=== PATIENT | female | born 1965 | race Caucasian/White ===

== ENCOUNTER 2017-08-18 13:16 | Emergency (ER) | payer MEDICARE, MEDICAID ==
[2017-08-18] MEDS ORDERED: hydrOXYzine 25 MG TAB ONE (14:21)
[2017-08-18] MEDS ORDERED: Acetaminophen 500 MG TAB ONE (14:21)
== END 2017-08-18 15:27 | disposition home or self-care (01) ==
LOC: ERS 13:16
DX: F41.9 Anxiety disorder, unspecified (principal); E66.9 Obesity, unspecified; E78.5 Hyperlipidemia, unspecified; I10 Essential (primary) hypertension
CPT/HCPCS: 99283

== ENCOUNTER 2018-03-17 18:28 | Emergency (ER) | payer MEDICARE, OTHER | END 2018-03-17 19:25 | disposition home or self-care (01) | LOC: ERS 18:28 | DX: F41.9 Anxiety disorder, unspecified (principal); I10 Essential (primary) hypertension; E66.9 Obesity, unspecified; E78.5 Hyperlipidemia, unspecified; Z79.899 Other long term (current) drug therapy | CPT/HCPCS: 93005 ==

== ENCOUNTER 2018-08-05 16:28 | Emergency (ER) | payer MEDICARE, OTHER ==
[2018-08-05] MEDS ORDERED: Lorazepam 1 MG TAB ONE (17:31)
== END 2018-08-05 18:30 | disposition home or self-care (01) ==
LOC: ERS 16:28
DX: F41.9 Anxiety disorder, unspecified (principal); E78.5 Hyperlipidemia, unspecified; I10 Essential (primary) hypertension; Z79.899 Other long term (current) drug therapy
CPT/HCPCS: 93005

== ENCOUNTER 2018-12-24 01:05 | Emergency (ER) | payer MEDICARE, OTHER | END 2018-12-24 02:33 | disposition home or self-care (01) | LOC: ERS 01:05 | DX: F41.9 Anxiety disorder, unspecified (principal); E78.5 Hyperlipidemia, unspecified; I10 Essential (primary) hypertension; Z79.899 Other long term (current) drug therapy | CPT/HCPCS: 93005 ==

== ENCOUNTER 2019-07-03 16:25 | Emergency (ER) | payer MEDICARE, OTHER ==
[2019-07-03] MEDS ORDERED: Lorazepam 1 MG TAB ONE (17:10)
[2019-07-03] MEDS ORDERED: hydrOXYzine Pamoate 25 mg Capsule ONE (17:48)
== END 2019-07-03 18:00 | disposition home or self-care (01) ==
LOC: ERS 16:25
DX: F41.9 Anxiety disorder, unspecified (principal); E78.5 Hyperlipidemia, unspecified; E78.00 Pure hypercholesterolemia, unspecified; I10 Essential (primary) hypertension; Z79.899 Other long term (current) drug therapy
CPT/HCPCS: 99283; Q0177

== ENCOUNTER 2019-10-03 12:36 | Emergency (ER) | payer MEDICARE, OTHER | END 2019-10-03 15:00 | disposition home or self-care (01) | LOC: ERS 12:36 | DX: J32.9 Chronic sinusitis, unspecified (principal); E78.5 Hyperlipidemia, unspecified; E78.00 Pure hypercholesterolemia, unspecified; I10 Essential (primary) hypertension; F41.9 Anxiety disorder, unspecified | CPT/HCPCS: 99284 ==

== ENCOUNTER 2019-10-24 17:56 | Emergency (ER) | payer MEDICARE, OTHER ==
[2019-10-24] MEDS ORDERED: hydrOXYzine 25 MG TAB ONE ×2 (19:11→19:15)
== END 2019-10-24 19:42 | disposition home or self-care (01) ==
LOC: ERS 17:56
DX: F41.9 Anxiety disorder, unspecified (principal); E78.5 Hyperlipidemia, unspecified; E78.00 Pure hypercholesterolemia, unspecified; I10 Essential (primary) hypertension
CPT/HCPCS: 99283

== ENCOUNTER 2019-11-22 13:35 | Emergency (ER) | payer MEDICARE, OTHER ==
[2019-11-22] MEDS ORDERED: Ketorolac Tromethamine 30 MG/ML VIAL ONE (15:50)
[2019-11-22] MEDS ORDERED: Lorazepam 2 MG/ML VIAL ONE (15:50)
[2019-11-22 16:05] LABS: #Eosinphils 0.1 thou/uL (0.0-0.7); #Lymphocytes 1.1 thou/uL (1.20-3.40); #Monocytes 0.5 thou/uL (0.11-0.59); #Neutrophils 7.2 thou/uL (1.40-6.50); %Basophils 0.2 % (0.0-1.0); %Eosinophils 0.6 % (0.0-10.0); %Lymphocytes 12.2 % (21.0-51.0); %Monocytes 5.6 % (0.0-10.0); %Neutrophils 81.4 % (42.0-75.0); Mean Corpuscular HGB CONC 34.1 g/dL (32.0-36.0); Mean Corpuscular Hemoglobin 28.7 pg (27.0-31.0); Mean Corpuscular Volume 84.1 fL (78.0-98.0); Mean Platelet Volume 9.7 fL (7.4-10.4); Platelet Count 222 thou/uL (130-400); RBC Distribution Width 13.1 % (11.5-14.5); Red Blood Cell (RBC) Count 4.52 mill/uL (4.20-5.40); White Blood Cell (WBC) Count 8.8 thou/uL (4.8-10.8)
[2019-11-22 16:18] LABS: Bilirubin Negative (Negative); Blood, Urine Negative (Negative); Clarity Clear (Clear); Glucose, Urine (Dipstick) Normal (Negative); Leukocyte Negative Leu/uL (Negative); Nitrite Negative (Negative); Protein, Urine (Dipstick) Negative (Neg-Trace); Urobilinogen Normal mg/dL (Less than 2)
[2019-11-22 16:27] LABS: Amphetamine Not Detected (NotDetected); Barbiturates Screen Not Detected (NotDetected); Benzodiazepine Screen Detected (NotDetected); Cocaine Metabolite Screen Not Detected (NotDetected); Medtox Control Line Valid? VALID (VALID); Medtox Reader # READER 4; Methadone Not Detected (NotDetected); Methamphetamine Not Detected (NotDetected); Opiate Screen Not Detected (NotDetected); Oxycodone Screen Not Detected (NotDetected); Phencyclidine (PCP) Not Detected (NotDetected); THC/Cannabinoid Screen Not Detected (NotDetected); Tricyclic Screen Not Detected (NotDetected)
[2019-11-22 16:27] LABS: ALT (SGPT) 19 U/L (8-55); AST (SGOT) 17 U/L (5-34); Albumin 4.2 g/dL (3.5-5.0); Alkaline Phosphatase 78 U/L (40-110); Anion Gap 12 mmol/L (10-20); BUN (Urea Nitrogen) 11 mg/dL (9.8-20.1); Bilirubin, Total 0.4 mg/dL (0.2-1.2); Calc. Creatinine Clearance 0 mL/min (70-130); Calcium 9.7 mg/dL (7.8-10.44); Carbon Dioxide 25 mmol/L (22-29); Chloride 106 mmol/L (98-107); Estimated GFR-MDRD 76; Globulin 3.1 g/dL (2.4-3.5); Glucose 119 mg/dL (70-105); Lipase 43 U/L (8-78); Potassium 3.9 mmol/L (3.5-5.1); Protein, Total 7.3 g/dL (6.0-8.3); Sodium 139 mmol/L (136-145)
== END 2019-11-22 18:30 | disposition home or self-care (01) ==
LOC: ERS 13:35
DX: F43.22 Adjustment disorder with anxiety (principal); J98.8 Other specified respiratory disorders; R42 Dizziness and giddiness
CPT/HCPCS: 36415; 80053; 80306; 81003; 83690; 85025; 96361; 96374; 96375; J1885; J2060

== ENCOUNTER 2019-12-22 14:51 | Emergency (ER) | payer MEDICARE, OTHER | END 2019-12-22 16:00 | disposition home or self-care (01) | LOC: ERS 14:51 | DX: F41.9 Anxiety disorder, unspecified (principal); I10 Essential (primary) hypertension; E11.9 Type 2 diabetes mellitus without complications; E78.5 Hyperlipidemia, unspecified | CPT/HCPCS: 99284 ==

== ENCOUNTER 2020-01-09 12:55 | Emergency (ER) | payer MEDICARE, OTHER | END 2020-01-09 15:03 | disposition home or self-care (01) | LOC: ERS 12:55 | DX: F41.9 Anxiety disorder, unspecified (principal); I10 Essential (primary) hypertension; E78.5 Hyperlipidemia, unspecified; E11.9 Type 2 diabetes mellitus without complications; Z79.899 Other long term (current) drug therapy | CPT/HCPCS: 99283 ==

== ENCOUNTER 2020-03-05 13:13 | Emergency (ER) | payer MEDICARE, OTHER | END 2020-03-05 15:39 | disposition home or self-care (01) | LOC: ERS 13:13 | DX: F41.9 Anxiety disorder, unspecified (principal); I10 Essential (primary) hypertension; E78.5 Hyperlipidemia, unspecified; E11.9 Type 2 diabetes mellitus without complications; Z79.899 Other long term (current) drug therapy | CPT/HCPCS: 36416; 93005 ==

== ENCOUNTER 2020-04-30 13:18 | Emergency (ER) | payer MEDICARE, OTHER ==
[2020-04-30 14:35] LABS: #Eosinphils 0.1 thou/uL (0.0-0.7); #Lymphocytes 1.2 thou/uL (1.20-3.40); #Monocytes 0.5 thou/uL (0.11-0.59); #Neutrophils 4.7 thou/uL (1.40-6.50); %Basophils 0.6 % (0.0-1.0); %Eosinophils 1.4 % (0.0-10.0); %Lymphocytes 18.6 % (21.0-51.0); %Monocytes 7.6 % (0.0-10.0); %Neutrophils 71.8 % (42.0-75.0); Hemoglobin 12.6 g/dL (12.0-16.0); Mean Corpuscular HGB CONC 33.9 g/dL (32.0-36.0); Mean Corpuscular Hemoglobin 29.5 pg (27.0-31.0); Mean Platelet Volume 9.2 fL (7.4-10.4); Platelet Count 229 thou/uL (130-400); RBC Distribution Width 12.3 % (11.5-14.5); Red Blood Cell (RBC) Count 4.28 mill/uL (4.20-5.40); White Blood Cell (WBC) Count 6.6 thou/uL (4.8-10.8)
[2020-04-30 14:58] LABS: ALT (SGPT) 20 U/L (8-55); AST (SGOT) 17 U/L (5-34); Albumin 4.4 g/dL (3.5-5.0); Alkaline Phosphatase 85 U/L (40-110); Anion Gap 15 mmol/L (10-20); BUN (Urea Nitrogen) 12 mg/dL (9.8-20.1); Bilirubin, Total 0.5 mg/dL (0.2-1.2); CK (CPK) 112 U/L (29-168); Calc. Creatinine Clearance 0 mL/min (70-130); Calcium 9.5 mg/dL (7.8-10.44); Carbon Dioxide 23 mmol/L (22-29); Chloride 106 mmol/L (98-107); Estimated GFR-MDRD 77; Globulin 3.3 g/dL (2.4-3.5); Glucose 150 mg/dL (70-105); Lipase 46 U/L (8-78); Protein, Total 7.7 g/dL (6.0-8.3); Sodium 140 mmol/L (136-145)
--- NOTE | 2020-04-30 15:53 | RAD ---
EXAM: CHEST ONE VIEW: 04/30/20 HISTORY: Chest pain, chest tightness, feeling overwhelmed. FINDINGS: Heart size is within normal limits. The lungs are clear. No confluent pneumonia, overt edema, or pleu ral effusion. IMPRESSION: No significant acute intrathoracic disease. POS: [facility]
[2020-04-30 17:47] LABS: Troponin I 0.013 ng/mL (< 0.028)
== END 2020-04-30 18:15 | disposition home or self-care (01) ==
LOC: ERS 13:18
DX: R07.9 Chest pain, unspecified (principal); I10 Essential (primary) hypertension; E11.9 Type 2 diabetes mellitus without complications; E78.5 Hyperlipidemia, unspecified; F41.9 Anxiety disorder, unspecified; Z79.899 Other long term (current) drug therapy
CPT/HCPCS: 36415; 71045; 80053; 82550; 83690; 84484; 85025; 93005

== ENCOUNTER 2020-05-07 12:58 | Emergency (ER) | payer MEDICARE, OTHER ==
[2020-05-07 15:02] LABS: #Eosinphils 0.1 thou/uL (0.0-0.7); #Monocytes 0.5 thou/uL (0.11-0.59); #Neutrophils 5.6 thou/uL (1.40-6.50); %Basophils 0.4 % (0.0-1.0); %Eosinophils 1.9 % (0.0-10.0); %Monocytes 6.5 % (0.0-10.0); %Neutrophils 77.2 % (42.0-75.0); Hemoglobin 12.4 g/dL (12.0-16.0); Mean Corpuscular HGB CONC 32.8 g/dL (32.0-36.0); Mean Corpuscular Hemoglobin 28.5 pg (27.0-31.0); Mean Corpuscular Volume 86.9 fL (78.0-98.0); Mean Platelet Volume 9.6 fL (7.4-10.4); Platelet Count 250 thou/uL (130-400); RBC Distribution Width 12.6 % (11.5-14.5); Red Blood Cell (RBC) Count 4.36 mill/uL (4.20-5.40); White Blood Cell (WBC) Count 7.2 thou/uL (4.8-10.8)
[2020-05-07 15:27] LABS: ALT (SGPT) 19 U/L (8-55); AST (SGOT) 14 U/L (5-34); Albumin 4.2 g/dL (3.5-5.0); Alkaline Phosphatase 77 U/L (40-110); Anion Gap 12 mmol/L (10-20); BUN (Urea Nitrogen) 12 mg/dL (9.8-20.1); Bilirubin, Total 0.4 mg/dL (0.2-1.2); Calc. Creatinine Clearance 0 mL/min (70-130); Calcium 9.6 mg/dL (7.8-10.44); Carbon Dioxide 24 mmol/L (22-29); Chloride 107 mmol/L (98-107); Estimated GFR-MDRD 81; Globulin 3.1 g/dL (2.4-3.5); Glucose 134 mg/dL (70-105); Potassium 3.8 mmol/L (3.5-5.1); Protein, Total 7.3 g/dL (6.0-8.3); Sodium 139 mmol/L (136-145)
[2020-05-07] MEDS ORDERED: Lorazepam 1 MG TAB ONE (15:47)
--- NOTE | 2020-05-07 15:51 | RAD ---
PORTABLE CHEST: 05/07/20 HISTORY: Chest pain. COMPARISON: 04/30/20. FINDINGS/IMPRESSION: Mild cardiomegaly with mild vascular engorgement. Hazy opacities in the lower lungs is similar to the prior exam. This could represent edema or infiltrate. No significant interval change is apparent fro m 04/30/20. POS: [facility]
== END 2020-05-07 16:25 | disposition home or self-care (01) ==
LOC: ERS 12:58
DX: F41.1 Generalized anxiety disorder (principal); I10 Essential (primary) hypertension; E11.9 Type 2 diabetes mellitus without complications; E78.5 Hyperlipidemia, unspecified; F41.9 Anxiety disorder, unspecified; Z79.899 Other long term (current) drug therapy
CPT/HCPCS: 36415; 71045; 80053; 84484; 85025; 93005

== ENCOUNTER 2020-08-06 23:55 | Emergency (ER) | payer MEDICARE, OTHER ==
[2020-08-07] MEDS ORDERED: Ketorolac Tromethamine 30 MG/ML VIAL ONE (01:35)
== END 2020-08-07 01:55 | disposition home or self-care (01) ==
LOC: ERS 23:55
DX: M25.562 Pain in left knee (principal); M25.561 Pain in right knee; M54.5 Low back pain; E11.9 Type 2 diabetes mellitus without complications; E78.5 Hyperlipidemia, unspecified; I10 Essential (primary) hypertension; F41.9 Anxiety disorder, unspecified; Z79.899 Other long term (current) drug therapy
CPT/HCPCS: 96372; 99283; J1885

== ENCOUNTER 2020-08-16 02:49 | Emergency (ER) | payer MEDICARE, OTHER ==
[2020-08-16 04:09] LABS: #Lymphocytes 0.5 thou/uL (1.20-3.40); #Monocytes 0.2 thou/uL (0.11-0.59); #Neutrophils 2.4 thou/uL (1.40-6.50); %Basophils 0.3 % (0.0-1.0); %Eosinophils 1.1 % (0.0-10.0); %Lymphocytes 16.4 % (21.0-51.0); %Monocytes 6.4 % (0.0-10.0); %Neutrophils 75.8 % (42.0-75.0); Hemoglobin 10.5 g/dL (12.0-16.0); Mean Corpuscular HGB CONC 33.9 g/dL (32.0-36.0); Mean Corpuscular Hemoglobin 27.7 pg (27.0-31.0); Mean Corpuscular Volume 81.9 fL (78.0-98.0); Mean Platelet Volume 8.9 fL (7.4-10.4); Platelet Count 201 thou/uL (130-400); RBC Distribution Width 14.2 % (11.5-14.5); Red Blood Cell (RBC) Count 3.77 mill/uL (4.20-5.40); White Blood Cell (WBC) Count 3.2 thou/uL (4.8-10.8)
[2020-08-16 04:29] LABS: ALT (SGPT) 13 U/L (8-55); AST (SGOT) 20 U/L (5-34); Albumin 3.4 g/dL (3.5-5.0); Alkaline Phosphatase 70 U/L (40-110); Anion Gap 15 mmol/L (10-20); BUN (Urea Nitrogen) 9 mg/dL (9.8-20.1); Bilirubin, Total 0.8 mg/dL (0.2-1.2); Calc. Creatinine Clearance 0 mL/min (70-130); Calcium 8.4 mg/dL (7.8-10.44); Carbon Dioxide 23 mmol/L (22-29); Chloride 104 mmol/L (98-107); Estimated GFR-MDRD 76; Glucose 112 mg/dL (70-105); Potassium 3.5 mmol/L (3.5-5.1); Protein, Total 6.4 g/dL (6.0-8.3); Sodium 138 mmol/L (136-145)
--- NOTE | 2020-08-16 11:15 | RAD ---
PORTABLE CHEST: HISTORY: Cough. COMPARISON: 05/07/2020 study. FINDINGS: Heart size is within normal limits. Increased parenchymal density in both lung hein could be on th e basis of edema, but multifocal infiltrative and COVID exposure could be a consideration. IMPRESSION: Borderline heart size, mild pulmonary vascular engorgement, increased interstitial markings. This co uld indicate some element of edema. However, the parenchymal lung hein are somewhat patchy in dist ribution and a multifocal pneumonia such as COVID should be considered. POS: OFF
== END 2020-08-16 05:42 | disposition home or self-care (01) ==
LOC: ERS 02:49
DX: R05 Cough (principal); I10 Essential (primary) hypertension; E11.9 Type 2 diabetes mellitus without complications; E78.5 Hyperlipidemia, unspecified; F41.9 Anxiety disorder, unspecified; Z79.899 Other long term (current) drug therapy
CPT/HCPCS: 36415; 71045; 80053; 83880; 84484; 85025; 93005

== ENCOUNTER 2020-08-26 12:08 | Emergency (ER) | payer MEDICARE, OTHER, MEDICAID ==
[~2020-08-26 12:08] MED LIST: Iopamidol-370 76% 500 ML 1 ML ONE
[2020-08-26] MEDS ORDERED: Ondansetron ODT 4 MG TAB ONE (12:41)
--- NOTE | 2020-08-26 13:43 | RAD ---
XR Chest 1 View Portable HISTORY: Nausea and vomiting COMPARISON: 08/16/2020 FINDINGS: The heart size is at upper limits of normal. The lungs are well expanded without focal area s of consolidation, pneumothorax or pleural effusions. IMPRESSION: No radiographic evidence of acute cardiopulmonary process.
[2020-08-26 14:01] LABS: #Eosinphils 0.1 thou/uL (0.0-0.7); #Lymphocytes 0.6 thou/uL (1.20-3.40); #Monocytes 0.2 thou/uL (0.11-0.59); #Neutrophils 2.5 thou/uL (1.40-6.50); %Basophils 0.5 % (0.0-1.0); %Eosinophils 1.6 % (0.0-10.0); %Lymphocytes 17.7 % (21.0-51.0); %Monocytes 5.7 % (0.0-10.0); %Neutrophils 74.5 % (42.0-75.0); Hemoglobin 10.7 g/dL (12.0-16.0); Mean Corpuscular HGB CONC 34.1 g/dL (32.0-36.0); Mean Corpuscular Hemoglobin 27.7 pg (27.0-31.0); Mean Corpuscular Volume 81.2 fL (78.0-98.0); Mean Platelet Volume 9.3 fL (7.4-10.4); Platelet Count 206 thou/uL (130-400); RBC Distribution Width 15.2 % (11.5-14.5); Red Blood Cell (RBC) Count 3.87 mill/uL (4.20-5.40); White Blood Cell (WBC) Count 3.3 thou/uL (4.8-10.8)
[2020-08-26 14:27] LABS: ALT (SGPT) 15 U/L (8-55); AST (SGOT) 23 U/L (5-34); Albumin 3.7 g/dL (3.5-5.0); Alkaline Phosphatase 79 U/L (40-110); Anion Gap 12 mmol/L (10-20); BUN (Urea Nitrogen) 11 mg/dL (9.8-20.1); Bilirubin, Total 0.8 mg/dL (0.2-1.2); Calc. Creatinine Clearance 0 mL/min (70-130); Calcium 8.6 mg/dL (7.8-10.44); Carbon Dioxide 23 mmol/L (22-29); Chloride 104 mmol/L (98-107); Estimated GFR-MDRD 74; Globulin 3.3 g/dL (2.4-3.5); Glucose 95 mg/dL (70-105); Lipase 38 U/L (8-78); Potassium 3.8 mmol/L (3.5-5.1); Sodium 135 mmol/L (136-145)
--- NOTE | 2020-08-26 15:09 | CT ---
EXAM: CT ABDOMEN AND PELVIS HISTORY: Nausea. Vomiting. COMPARISON: None. Procedure: Multiple contiguous axial images were obtained and a CT of the abdomen and pelvis with IV contrast. C oronal reformats were performed. FINDINGS: Lower Chest: within normal limits. Vessels: Normal caliber aorta. No periaortic fat stranding. Heart: Normal heart size. No significant pericardial fluid Abdomen: Portal vein:Patent Gallbladder: No calcified gallstones. Normal caliber wall. Liver: within normal limits. Pancreas: within normal limits. Spleen: Nonspecific hypodensity along the lateral margin of the spleen measures 1.2 x 1.1 cm. Adrenals: within normal limits. Kidneys: Symmetric enhancement. No obstructive uropathy. Peritoneum: No ascites or free air, no fluid collection. Bowel: Limited evaluation due to the lack of oral contrast administration. No evidence of bowel obstr uction. Ileocecal junction is unremarkable. Appendix is not appreciated. No secondary signs of appendicitis. Scattered fecal material in a nondistended, nondilated colon. Small hiatal hernia. Mesentery and Retroperitoneum: No enlarged mesenteric or retroperitoneal lymph nodes. Abdominal Wall: within normal limits. Pelvis: Reproductive Organs: Reproductive organs are unremarkable. Pelvis: No mass, lymphadenopathy, free air or free fluid. Bladder: within normal limits. Bones: Multilevel degenerative changes of the distal thoracic and lumbar spine. Bilateral pars defect s at L5 with grade 1 anterolisthesis of L5 upon S1. There is vacuum disc phenomenon. IMPRESSION: No evidence of acute intraabdominal\pelvic abnormality.
[2020-08-26 15:28] LABS: Bacteria/HPF None Seen HPF (None Seen); Bilirubin Negative (Negative); Blood, Urine 2+ (Negative); Clarity Clear (Clear); Glucose, Urine (Dipstick) Normal (Negative); Ketone, Urine Negative (Negative); Leukocyte Negative Leu/uL (Negative); Nitrite Negative (Negative); Protein, Urine (Dipstick) Negative (Neg-Trace); Specific Gravity, Urine 1.037 (1.002-1.036); Squamous Epithelial 0-3 HPF (0-3); Urobilinogen Normal mg/dL (Less than 2); WBC/HPF 0-3 HPF (0-3)
--- NOTE | 2020-08-29 11:04 | EKG ---
Test Reason : SOB Blood Pressure : / mmHG Vent. Rate : 082 BPM Atrial Rate : 082 BPM P-R Int : 182 ms QRS Dur : 080 ms QT Int : 400 ms P-R-T Axes : 066 001 006 degrees QTc Int : 467 ms Normal sinus rhythm Prolonged QT Abnormal ECG Confirmed by ANTONELLA MTZ DO ([id number]), video editor KADY CARRASCO ([id number]) on 08/29/2020 11:03:30 AM Referred By: Confirmed By:ANTONELLA MTZ DO
== END 2020-08-26 16:24 | disposition home or self-care (01) ==
LOC: ERS 12:08
DX: R11.2 Nausea with vomiting, unspecified (principal); R50.9 Fever, unspecified; I10 Essential (primary) hypertension; E11.9 Type 2 diabetes mellitus without complications; E78.5 Hyperlipidemia, unspecified; F41.9 Anxiety disorder, unspecified; Z79.899 Other long term (current) drug therapy
CPT/HCPCS: 36415; 51701; 71045; 74177; 80053; 81003; 81015; 83690; 83880; 84484; 85025; 93005; Q0162; Q9967

== ENCOUNTER 2020-09-17 17:41 | Observation (INO) | payer MEDICARE, MEDICAID ==
[2020-09-17 19:17] LABS: #Lymphocytes 0.5 thou/uL (1.20-3.40); #Monocytes 0.1 thou/uL (0.11-0.59); #Neutrophils 1.7 thou/uL (1.40-6.50); %Basophils 0.2 % (0.0-1.0); %Eosinophils 1.6 % (0.0-10.0); %Lymphocytes 21.9 % (21.0-51.0); %Monocytes 5.2 % (0.0-10.0); %Neutrophils 71.1 % (42.0-75.0); Hemoglobin 9.7 g/dL (12.0-16.0); Mean Corpuscular HGB CONC 34.8 g/dL (32.0-36.0); Mean Corpuscular Volume 83.2 fL (78.0-98.0); Mean Platelet Volume 8.4 fL (7.4-10.4); Platelet Count 188 thou/uL (130-400); RBC Distribution Width 15.9 % (11.5-14.5); Red Blood Cell (RBC) Count 3.36 mill/uL (4.20-5.40); White Blood Cell (WBC) Count 2.4 thou/uL (4.8-10.8)
--- NOTE | 2020-09-17 19:29 | RAD ---
EXAM: CHEST ONE VIEW HISTORY: Cough and shortness of breath COMPARISON: 08/26/2020 FINDINGS: Cardiac silhouette is mildly enlarged. Central pulmonary vasculature does appear mildly increased on today's exam. There is no consolidation or pleural fluid identified. No other interval change. IMPRESSION: Mild cardiomegaly and interval development mild prominence of the central pulmonary vasculature. Find ings may be related to mild CHF.
[2020-09-17 19:51] LABS: ALT (SGPT) 16 U/L (8-55); AST (SGOT) 25 U/L (5-34); Albumin 3.6 g/dL (3.5-5.0); Alkaline Phosphatase 81 U/L (40-110); Anion Gap 14 mmol/L (10-20); BUN (Urea Nitrogen) 7 mg/dL (9.8-20.1); Bilirubin, Total 0.9 mg/dL (0.2-1.2); Calc. Creatinine Clearance 0 mL/min (70-130); Calcium 9.3 mg/dL (7.8-10.44); Carbon Dioxide 26 mmol/L (22-29); Chloride 102 mmol/L (98-107); Estimated GFR-MDRD 70; Globulin 3.6 g/dL (2.4-3.5); Glucose 93 mg/dL (70-105); Potassium 3.5 mmol/L (3.5-5.1); Protein, Total 7.2 g/dL (6.0-8.3); Sodium 138 mmol/L (136-145)
[2020-09-17] MEDS ORDERED: Aspirin Chewable 81 MG TAB ONE (21:46)
[2020-09-17] MEDS ORDERED: Nitroglycerin 2% Ointment 1 INCH/1 GM Packet ONE (21:47)
[2020-09-17] MEDS ORDERED: Furosemide 40 MG/4 ML VIAL ONE (21:47)
[2020-09-17 23:24] LABS: Troponin I Less than 0.010 ng/mL (< 0.028)
[2020-09-17 23:29] LABS: SARS-CoV-2 NAA Rapid Test Not Detected (NotDetected)
[2020-09-18 02:28] LABS: Troponin I 0.014 ng/mL (< 0.028)
[2020-09-18] MEDS ORDERED: Benzonatate 100 MG CAP PO PRN (09:34)
[2020-09-18] MEDS ORDERED: Citalopram 20 MG TAB PO SCH (09:45)
[2020-09-18] MEDS ORDERED: Montelukast Sodium 10 mg Tablet PO SCH (09:45)
[2020-09-18] MEDS ORDERED: ALPRAZolam 0.5 MG TAB PO SCH (09:45)
[2020-09-18] MEDS ORDERED: guaiFENesin ER 600 MG TAB PO SCH (09:45)
[2020-09-18] MEDS ORDERED: hydrALAZINE 25 MG TAB PO SCH (09:45)
[2020-09-18] MEDS ORDERED: Amlodipine 10 MG TAB PO SCH (09:45)
[2020-09-18] MEDS ORDERED: Cefdinir 300 MG CAP PO SCH (09:45)
[2020-09-18] MEDS ORDERED: Lisinopril 20 MG TAB PO SCH (09:45)
[2020-09-18] MEDS ORDERED: Aspirin Chewable 81 MG TAB PO SCH (10:00)
[2020-09-18] MEDS ORDERED: Aspirin Chewable 81 MG TAB ONE (10:24)
[2020-09-18] MEDS ORDERED: ALPRAZolam 0.5 MG TAB ONE ×2 (11:48→15:47)
[2020-09-18] MEDS ORDERED: hydrALAZINE 25 MG TAB ONE (11:49)
[2020-09-18] MEDS: ALPRAZolam 0.5 MG TAB PO SCH ×3 (15:50→21:05)
[2020-09-18] MEDS: Cefdinir 300 MG CAP PO SCH (21:03)
[2020-09-18] MEDS: guaiFENesin ER 600 MG TAB PO SCH (21:03)
[2020-09-18] MEDS: hydrALAZINE 25 MG TAB PO SCH (21:04)
[2020-09-18] MEDS: Rosuvastatin 20 MG TAB PO SCH (21:04)
--- NOTE | 2020-09-18 23:13 | HP ---
CHIEF COMPLAINT: Elevated BNP with a cough. HISTORY OF PRESENT ILLNESS: The patient is a 55-year-old female with a long history of chronic recurrent sinus infections, who is coming to the emergency room that she has had cough for a month, and she has been feeling tired. She thinks she may have had some fever. No vomiting or diarrhea. She has been concerned about her coughing, and she coughed hard enough to throw up one time, so she came to the emergency room. There in the ER, she was noted to have a BNP of 140. On chest x-ray, there was some vascular engorgement with enlarged heart, so Dr. Alvarez was contacted about putting her in for an echocardiogram and further cardiac evaluation. PAST MEDICAL HISTORY: Significant for hypertension, hyperlipidemia, trj-ejcnqsb-[id number] diabetes, degenerative joint disease. PSYCHIATRIC HISTORY: Significant for depression, generalized anxiety, and borderline intellectual function. She is disabled. PAST SURGICAL HISTORY: Includes a tubal ligation. SOCIAL HISTORY: She has never been . Denies illicit drug use. Used to smoke but no longer. ALLERGIES: TO SULFA. CURRENT MEDICATIONS: Include: 1. Xanax 1 mg t.i.d. 2. Losartan 100 mg daily. 3. Hydralazine 50 mg t.i.d. 4. Amlodipine/benazepril 10/40 one p.o. daily. 5. Motrin 800 b.i.d. 6. Pioglitazone 15 mg. 7. Citalopram 40 mg daily. 8. Metoprolol succinate 50 mg daily. 9. P.r.n. Zofran ODT 8 mg. REVIEW OF SYSTEMS: GENERAL: As mentioned above. General malaise, cough, subjective fever. HEENT: Admits to drainage and pressure in her face with significant postnasal drip that coughs up. CHEST: Has a cough but no shortness of breath. CARDIOVASCULAR: Denies palpitations or chest pain. GI: Admits to nausea and one vomiting episode. No diarrhea. : Denies dysuria or blood in urine or stool. SKIN: Chronic dermatitis/neurodermatitis with self excoriations continuously. NEUROLOGIC: Significant for headaches, but no blurred vision. PSYCHIATRIC: Chronic anxiety. PHYSICAL EXAMINATION: VITAL SIGNS: At the time of admission, blood pressure 188/ 118 with a pulse of 80, respirations 18, temperature 98.4. The pain scale is 0. O2 saturation 93% on room air. The patient has not had her usual medications for blood pressure. GENERAL: This is a morbidly obese female, disheveled, unbathed, unkempt. Alert, cooperative with significant anxiety. HEENT: Normocephalic, atraumatic. Very poor dentition. Poor transillumination of the sinuses. Green postnasal drip. NECK: Supple. CHEST: Clear to auscultation. HEART: Regular rate and rhythm without murmur. BREASTS: Deferred. ABDOMEN: Obese. Unable to appreciate organomegaly. : Deferred. EXTREMITIES: With chronic 2 to 3+ lower extremity edema and dystrophic. SKIN: Self excoriated diffusely wherever her hands can reach, clear where her hands cannot reach. Neurologic: Cranial nerves are intact. Cerebellar function intact. Sensory exam is intact. Mental status is clear except for anxiety. LABORATORY DATA: Lab work on admission as previously mentioned. Chest x-ray showed mild heart enlargement with vascular pulmonary engorgement. BNP at 140. WBC is 2.4, hemoglobin 9.7, hematocrit 27.9. Sodium 138, potassium 3.5, chloride 102, CO2 26, BUN 7, creatinine 0.84, glucose 93, calcium 9.3, total bilirubin 0.9, AST 25, ALT 216 with alkaline phosphate of 18. Troponin I's are negative x3. She is COVID negative. ASSESSMENT: 1. Elevated brain natriuretic peptide. 2. Anemia. 3. Leukopenia. 4. Severe anxiety disorder. PLAN: Echocardiogram and serial re-evaluation. We will probably discharge once echo is complete. We will also check stools for blood. Face to face time 45 minutes. Job ID: [id number] [facility]
[2020-09-19] MEDS: Amlodipine 10 MG TAB PO SCH (08:30)
[2020-09-19] MEDS: ALPRAZolam 0.5 MG TAB PO SCH ×3 (08:30→21:52)
[2020-09-19] MEDS: Citalopram 20 MG TAB PO SCH (08:31)
[2020-09-19] MEDS: Cefdinir 300 MG CAP PO SCH ×2 (08:31→21:52)
[2020-09-19] MEDS: guaiFENesin ER 600 MG TAB PO SCH ×2 (08:31→21:52)
[2020-09-19] MEDS: Aspirin Chewable 81 MG TAB PO SCH (08:31)
[2020-09-19] MEDS: Montelukast Sodium 10 mg Tablet PO SCH (08:32)
[2020-09-19] MEDS: hydrALAZINE 25 MG TAB PO SCH ×2 (08:32→21:53)
[2020-09-19] MEDS: Lisinopril 20 MG TAB PO SCH (08:32)
[2020-09-19 09:45] LABS: #Eosinphils 0.1 thou/uL (0.0-0.7); #Lymphocytes 0.7 thou/uL (1.20-3.40); #Monocytes 0.1 thou/uL (0.11-0.59); #Neutrophils 1.8 thou/uL (1.40-6.50); %Basophils 1.1 % (0.0-1.0); %Eosinophils 2.4 % (0.0-10.0); %Lymphocytes 25.3 % (21.0-51.0); %Neutrophils 66.3 % (42.0-75.0); Hemoglobin 9.9 g/dL (12.0-16.0); Mean Corpuscular HGB CONC 34.1 g/dL (32.0-36.0); Mean Corpuscular Hemoglobin 28.5 pg (27.0-31.0); Mean Corpuscular Volume 83.4 fL (78.0-98.0); Platelet Count 205 thou/uL (130-400); RBC Distribution Width 15.7 % (11.5-14.5); Red Blood Cell (RBC) Count 3.48 mill/uL (4.20-5.40); White Blood Cell (WBC) Count 2.7 thou/uL (4.8-10.8)
[2020-09-19 09:52] LABS: Hemoglobin A1c 4.7 % (4.0-6.0)
[2020-09-19] MEDS ORDERED: Furosemide 40 MG TAB PO SCH (11:45)
[2020-09-19] MEDS: Milk Of Magnesia 30 ML UDCUP PO SCH ×2 (12:54→15:01)
[2020-09-19 13:25] VITALS: BMI 49.8
[2020-09-19] MEDS: Rosuvastatin 20 MG TAB PO SCH (21:53)
[2020-09-20 04:17] LABS: #Eosinphils 0.1 thou/uL (0.0-0.7); #Lymphocytes 0.9 thou/uL (1.20-3.40); #Monocytes 0.2 thou/uL (0.11-0.59); #Neutrophils 1.8 thou/uL (1.40-6.50); %Basophils 1.1 % (0.0-1.0); %Eosinophils 3.4 % (0.0-10.0); %Lymphocytes 28.7 % (21.0-51.0); %Monocytes 7.3 % (0.0-10.0); %Neutrophils 59.5 % (42.0-75.0); Hemoglobin 9.3 g/dL (12.0-16.0); Mean Corpuscular HGB CONC 33.6 g/dL (32.0-36.0); Mean Corpuscular Hemoglobin 28.5 pg (27.0-31.0); Mean Corpuscular Volume 84.7 fL (78.0-98.0); Mean Platelet Volume 9.8 fL (7.4-10.4); Platelet Count 125 thou/uL (130-400); RBC Distribution Width 15.7 % (11.5-14.5); Red Blood Cell (RBC) Count 3.27 mill/uL (4.20-5.40); White Blood Cell (WBC) Count 3.1 thou/uL (4.8-10.8)
[2020-09-20 04:42] LABS: Cardiac Risk 3.7 (Less than 4.5)
[2020-09-20 05:08] LABS: Ferritin 200.87 ng/mL (10-291)
[2020-09-20] MEDS: ALPRAZolam 0.5 MG TAB PO SCH ×3 (08:44→19:52)
[2020-09-20] MEDS: Amlodipine 10 MG TAB PO SCH (08:44)
[2020-09-20] MEDS: Aspirin Chewable 81 MG TAB PO SCH (08:44)
[2020-09-20] MEDS: Cefdinir 300 MG CAP PO SCH (08:44)
[2020-09-20] MEDS: Montelukast Sodium 10 mg Tablet PO SCH (08:45)
[2020-09-20] MEDS: hydrALAZINE 25 MG TAB PO SCH (08:45)
[2020-09-20] MEDS: Citalopram 20 MG TAB PO SCH (08:45)
[2020-09-20] MEDS: Lisinopril 20 MG TAB PO SCH (08:45)
[2020-09-20] MEDS: guaiFENesin ER 600 MG TAB PO SCH (08:45)
[2020-09-20] MEDS ORDERED: Furosemide 40 MG TAB PO SCH (09:00)
[2020-09-20 15:55] VITALS: BP 144/87; TEMP 98.5
== END 2020-09-20 19:58 | disposition home or self-care (01) ==
LOC: ERS 17:41 → ERHOLD 21:25 → 2NO 09-18 18:08
PROVIDERS: ADMIT Specialist; ATTEND Specialist
DX: R79.89 Other specified abnormal findings of blood chemistry (principal); R05 Cough; I51.7 Cardiomegaly; I10 Essential (primary) hypertension; E11.9 Type 2 diabetes mellitus without complications; E78.5 Hyperlipidemia, unspecified; F41.1 Generalized anxiety disorder; F32.9 Major depressive disorder, single episode, unspecified; D72.819 Decreased white blood cell count, unspecified; Z79.899 Other long term (current) drug therapy; Z87.891 Personal history of nicotine dependence; Z88.2 Allergy status to sulfonamides; Z20.828 Contact with and (suspected) exposure to other viral communicable diseases
CPT/HCPCS: 71045; 80053; 80061; 82607; 82728; 82746; 82962; 83036; 83550; 83880 ×2; 84484 ×3; 85025 ×3; 93005; 93306; 96374; 99285; U0002; 36415; 36416; G0378; J1940

== ENCOUNTER 2020-11-01 20:22 | Emergency (ER) | payer MEDICARE, MEDICAID ==
[2020-11-01] MEDS ORDERED: Ondansetron ODT 4 MG TAB ONE (21:15)
--- NOTE | 2020-11-01 21:24 | RAD ---
EXAM: CHEST ONE VIEW HISTORY: Nausea and vomiting. COMPARISON: 09/17/2020 FINDINGS: Cardiac silhouette and pulmonary vasculature are within normal limits for the portable technique of t he study. Central pulmonary vasculature is less prominent than on prior exam. Lungs appear clear on today's exam. No other interval change. IMPRESSION: No acute cardiopulmonary process.
[2020-11-01 22:01] LABS: Hemoglobin 9.7 g/dL (12.0-16.0); Mean Corpuscular HGB CONC 34.2 g/dL (32.0-36.0); Mean Corpuscular Hemoglobin 28.8 pg (27.0-31.0); Mean Corpuscular Volume 84.1 fL (78.0-98.0); RBC Distribution Width 12.5 % (11.5-14.5); Red Blood Cell (RBC) Count 3.37 mill/uL (4.20-5.40); White Blood Cell (WBC) Count 4.1 thou/uL (4.8-10.8)
[2020-11-01 22:06] LABS: ALT (SGPT) 13 U/L (8-55); AST (SGOT) 19 U/L (5-34); Albumin 3.5 g/dL (3.5-5.0); Alkaline Phosphatase 76 U/L (40-110); Anion Gap 14 mmol/L (10-20); BUN (Urea Nitrogen) 9 mg/dL (9.8-20.1); Bilirubin, Total 0.7 mg/dL (0.2-1.2); Calc. Creatinine Clearance 0 mL/min (70-130); Calcium 8.7 mg/dL (7.8-10.44); Carbon Dioxide 27 mmol/L (22-29); Chloride 105 mmol/L (98-107); Globulin 2.9 g/dL (2.4-3.5); Glucose 100 mg/dL (70-105); Protein, Total 6.4 g/dL (6.0-8.3); Sodium 143 mmol/L (136-145)
[2020-11-01 22:19] LABS: #Basophils 0.1 thou/uL (0.0-0.2); #Eosinphils 0.1 thou/uL (0.0-0.7); #Lymphocytes 0.5 thou/uL (1.20-3.40); #Monocytes 0.2 thou/uL (0.11-0.59); #Neutrophils 3.2 thou/uL (1.40-6.50); %Basophils 1.7 % (0.0-1.0); %Eosinophils 1.7 % (0.0-10.0); %Lymphocytes 13.3 % (21.0-51.0); %Monocytes 4.5 % (0.0-10.0); %Neutrophils 78.9 % (42.0-75.0)
[2020-11-01 22:41] LABS: MDiff Complete? YES; Mean Platelet Volume 8.9 fL (7.4-10.4); Platelet Clumps MODERATE; Platelet Count 173 thou/uL (130-400); Platelet Morphology Comment Appears Adequate
[2020-11-01] MEDS ORDERED: Potassium Chloride 20 MEQ TAB ONE (22:41)
== END 2020-11-01 23:58 | disposition home or self-care (01) ==
LOC: ERS 20:22
DX: R11.2 Nausea with vomiting, unspecified (principal); E87.6 Hypokalemia; Z79.899 Other long term (current) drug therapy; I10 Essential (primary) hypertension; E78.5 Hyperlipidemia, unspecified; E11.9 Type 2 diabetes mellitus without complications
CPT/HCPCS: 36415; 71045; 80053; 84484; 85025; 93005; Q0162

== ENCOUNTER 2020-11-19 10:44 | Emergency (ER) | payer MEDICARE, MEDICAID ==
--- NOTE | 2020-11-19 12:59 | RAD ---
PORTABLE CHEST 1 VIEW: DATE: . TIME: 11:48 a.m. HISTORY: PORTABLE CHEST 1 VIEW: HISTORY: Dizziness and abnormal heart rhythm. COMPARISON: 11/01/2020. FINDINGS: The heart size is normal. No lobar consolidation, pneumothoraces, or pleural effusions are seen. IMPRESSION: No acute process. POS: OFF
[2020-11-19 13:13] LABS: ALT (SGPT) 11 U/L (8-55); AST (SGOT) 20 U/L (5-34); Albumin 3.5 g/dL (3.5-5.0); Alkaline Phosphatase 86 U/L (40-110); Anion Gap 20 mmol/L (10-20); BUN (Urea Nitrogen) 14 mg/dL (9.8-20.1); CK (CPK) 41 U/L (29-168); Calc. Creatinine Clearance 0 mL/min (70-130); Calcium 8.7 mg/dL (7.8-10.44); Carbon Dioxide 25 mmol/L (22-29); Chloride 97 mmol/L (98-107); Globulin 3.4 g/dL (2.4-3.5); Glucose 108 mg/dL (70-105); Magnesium 1.8 mg/dL (1.6-2.6); Potassium 3.6 mmol/L (3.5-5.1); Protein, Total 6.9 g/dL (6.0-8.3); Sodium 138 mmol/L (136-145)
[2020-11-19 14:58] LABS: #Eosinphils 0.1 thou/uL (0.0-0.7); #Lymphocytes 0.7 thou/uL (1.20-3.40); #Monocytes 0.3 thou/uL (0.11-0.59); #Neutrophils 4.4 thou/uL (1.40-6.50); %Basophils 0.8 % (0.0-1.0); %Eosinophils 1.7 % (0.0-10.0); %Lymphocytes 12.6 % (21.0-51.0); %Neutrophils 78.8 % (42.0-75.0); Hemoglobin 9.5 g/dL (12.0-16.0); Mean Corpuscular HGB CONC 34.4 g/dL (32.0-36.0); Mean Corpuscular Hemoglobin 28.8 pg (27.0-31.0); Mean Corpuscular Volume 83.6 fL (78.0-98.0); Mean Platelet Volume 11.3 fL (7.4-10.4); Platelet Count 146 thou/uL (130-400); RBC Distribution Width 12.1 % (11.5-14.5); Red Blood Cell (RBC) Count 3.31 mill/uL (4.20-5.40); White Blood Cell (WBC) Count 5.6 thou/uL (4.8-10.8)
== END 2020-11-19 16:25 | disposition home or self-care (01) ==
LOC: ERS 10:44
DX: R00.2 Palpitations (principal); I11.0 Hypertensive heart disease with heart failure; I50.9 Heart failure, unspecified; E78.5 Hyperlipidemia, unspecified; Z79.899 Other long term (current) drug therapy
CPT/HCPCS: 36415; 71045; 80053; 82550; 83735; 83880; 84443; 84484; 85025; 93005

== ENCOUNTER 2020-11-24 15:11 | Emergency (ER) | payer MEDICARE, OTHER ==
[2020-11-24] MEDS ORDERED: Ondansetron ODT 4 MG TAB ONE (15:50)
[2020-11-24 16:12] LABS: #Eosinphils 0.1 thou/uL (0.0-0.7); #Monocytes 0.3 thou/uL (0.11-0.59); #Neutrophils 3.3 thou/uL (1.40-6.50); %Basophils 0.6 % (0.0-1.0); %Eosinophils 2.7 % (0.0-10.0); %Lymphocytes 20.7 % (21.0-51.0); %Monocytes 6.2 % (0.0-10.0); %Neutrophils 69.8 % (42.0-75.0); Hemoglobin 10.2 g/dL (12.0-16.0); Mean Corpuscular Hemoglobin 28.3 pg (27.0-31.0); Mean Corpuscular Volume 83.2 fL (78.0-98.0); Mean Platelet Volume 11.2 fL (7.4-10.4); Platelet Count 159 thou/uL (130-400); RBC Distribution Width 12.4 % (11.5-14.5); Red Blood Cell (RBC) Count 3.61 mill/uL (4.20-5.40); White Blood Cell (WBC) Count 4.7 thou/uL (4.8-10.8)
--- NOTE | 2020-11-24 16:26 | RAD ---
Exam: Chest one view HISTORY:Syncope. Fall. Comparison: 11/19/2020 FINDINGS: Cardiac silhouette: Normal Aorta: Unremarkable Pulmonary vessels: Normal Costophrenic angles: Clear LUNGS: No masses or consolidation. Pneumothorax: None Osseous abnormalities: None IMPRESSION: No acute cardiopulmonary process.
[2020-11-24 16:35] LABS: ALT (SGPT) 11 U/L (8-55); AST (SGOT) 17 U/L (5-34); Albumin 3.4 g/dL (3.5-5.0); Alkaline Phosphatase 84 U/L (40-110); Anion Gap 14 mmol/L (10-20); BUN (Urea Nitrogen) 16 mg/dL (9.8-20.1); Bilirubin, Total 0.8 mg/dL (0.2-1.2); Calc. Creatinine Clearance 0 mL/min (70-130); Calcium 8.9 mg/dL (7.8-10.44); Carbon Dioxide 29 mmol/L (22-29); Chloride 99 mmol/L (98-107); Globulin 3.4 g/dL (2.4-3.5); Glucose 92 mg/dL (70-105); Potassium 3.2 mmol/L (3.5-5.1); Protein, Total 6.8 g/dL (6.0-8.3); Sodium 139 mmol/L (136-145)
[2020-11-24] MEDS ORDERED: Potassium Chloride 20 MEQ TAB ONE (18:04)
[2020-11-24] MEDS ORDERED: Magnesium 2 GM/50 ML BAG (IN WATER) ONE (18:04)
[2020-11-24] MEDS ORDERED: diphenhydrAMINE 25 MG CAP ONE (18:04)
[2020-11-24] MEDS ORDERED: Diazepam 10 MG/2 ML SYRINGE ONE (18:05)
--- NOTE | 2020-11-24 19:06 | MRI ---
MRI of thelumbar spine: 11/24/2020 COMPARISON:None available HISTORY:Bilateral knee weakness, chronic back pain, saddle paresthesia TECHNIQUE: Multiplanar multisequence MR imaging of thelumbar spine without contrast Findings:The sagittal STIR imaging demonstrates no focal area of osseous marrow edema. On the basis of 5 lumbar type vertebral bodies, the conus medullaris terminates at the T12-L1 level. There is anterolisthesis at L5-S1 measuring 1.2 cm with bilateral L5 pars defects noted. T12-L1: There is disc space narrowing and disc desiccation with anterior osteophyte formation. Mild b ilateral facet hypertrophy with no significant central canal or neural foraminal stenosis. L1-2: There is bilateral facet hypertrophy with mild disc bulge. No significant central canal or neur al foraminal stenosis. L2-3: Mild bilateral facet hypertrophy. Disc desiccation noted. No significant central canal or neura l foraminal stenosis. L3-4: Mild bilateral facet hypertrophy. No central canal or neural foraminal stenosis. L4-5: Mild bilateral facet hypertrophy. Disc space narrowing and disc desiccation with no central can al or neural foraminal stenosis. L5-S1: Severe bilateral neural foraminal stenosis. Disc space narrowing with disc desiccation. No misha tral canal stenosis. The imaged retroperitoneal structures appear grossly unremarkable. IMPRESSION:Bilateral L5 pars defects with significant L5-S1 anterolisthesis and associated severe juve ateral neural foraminal stenosis.
[2020-11-24] MEDS ORDERED: Dexamethasone 4 mg/ml Vial ONE (20:38)
--- NOTE | 2020-11-28 10:20 | EKG ---
Test Reason : Blood Pressure : / mmHG Vent. Rate : 072 BPM Atrial Rate : 072 BPM P-R Int : 184 ms QRS Dur : 080 ms QT Int : 460 ms P-R-T Axes : 049 008 022 degrees QTc Int : 503 ms Normal sinus rhythm Nonspecific ST and T wave abnormality Prolonged QT Abnormal ECG Confirmed by STEPHY PATEL ([id number]), dictionary editor KADY CARRASCO ([id number]) on 11/28/2020 10:19:43 AM Referred By: Confirmed By:STEPHY Bailon
== END 2020-11-24 20:53 | disposition home or self-care (01) ==
LOC: ERS 15:11
DX: R53.1 Weakness (principal); M54.5 Low back pain; G89.29 Other chronic pain; E78.5 Hyperlipidemia, unspecified; I11.0 Hypertensive heart disease with heart failure; I50.9 Heart failure, unspecified; Z79.899 Other long term (current) drug therapy
CPT/HCPCS: 36415; 71045; 72148; 80053; 83735; 84484; 85025; 93005; 94760; 96365; 96375; J1100; J3360; J3475; Q0162; Q0163

== ENCOUNTER 2020-11-25 20:00 | Observation (INO) | payer MEDICARE, MEDICAID ==
--- NOTE | 2020-11-25 20:36 | RAD ---
Portable frontal chest radiograph: 11/25/2020 COMPARISON: 11/24/2020 HISTORY: Chest tightness, chest pain FINDINGS: Stable prominence of the cardiac silhouette. No pneumothorax or pleural fluid is seen and t here is no focal consolidation or alveolar edema. IMPRESSION: No focal consolidation or alveolar edema.
[2020-11-25 20:56] LABS: #Lymphocytes 0.8 thou/uL (1.20-3.40); #Monocytes 0.3 thou/uL (0.11-0.59); #Neutrophils 6.8 thou/uL (1.40-6.50); %Basophils 0.2 % (0.0-1.0); %Eosinophils 0.1 % (0.0-10.0); %Lymphocytes 9.5 % (21.0-51.0); %Monocytes 4.2 % (0.0-10.0); Hemoglobin 9.5 g/dL (12.0-16.0); Mean Corpuscular Hemoglobin 28.9 pg (27.0-31.0); Mean Corpuscular Volume 82.5 fL (78.0-98.0); Mean Platelet Volume 9.3 fL (7.4-10.4); Platelet Count 234 thou/uL (130-400); RBC Distribution Width 12.6 % (11.5-14.5); Red Blood Cell (RBC) Count 3.29 mill/uL (4.20-5.40)
[2020-11-25 21:18] LABS: ALT (SGPT) 9 U/L (8-55); AST (SGOT) 13 U/L (5-34); Albumin 3.4 g/dL (3.5-5.0); Alkaline Phosphatase 80 U/L (40-110); Anion Gap 15 mmol/L (10-20); BUN (Urea Nitrogen) 19 mg/dL (9.8-20.1); Bilirubin, Total 0.5 mg/dL (0.2-1.2); Calc. Creatinine Clearance 0 mL/min (70-130); Calcium 8.9 mg/dL (7.8-10.44); Carbon Dioxide 26 mmol/L (22-29); Chloride 100 mmol/L (98-107); Globulin 3.3 g/dL (2.4-3.5); Glucose 103 mg/dL (70-105); Potassium 3.5 mmol/L (3.5-5.1); Protein, Total 6.7 g/dL (6.0-8.3); Sodium 137 mmol/L (136-145)
[2020-11-26 00:30] LABS: Troponin I Less than 0.010 ng/mL (< 0.028)
[2020-11-26 04:56] LABS: Troponin I 0.016 ng/mL (< 0.028)
[2020-11-26 08:08] LABS: SARS-CoV-2 MS2 Positive; SARS-CoV-2 N Gene Negative; SARS-CoV-2 S Gene Negative; SARS-CoV-2 by NAA Not Detected (NotDetected); SARS-CoV-2 orf1ab Negative
[2020-11-26] MEDS ORDERED: FLU VACC QS2020-21(65YR UP)/PF 240 MCG/0.7 ML SYRINGE IM ONE (09:00)
[2020-11-26 10:08] VITALS: BMI 47.2
--- NOTE | 2020-11-26 11:58 | HP ---
Date of observation began on 11/25/2020. CHIEF COMPLAINT: Chest pain. HISTORY OF PRESENT ILLNESS: The patient is a 55-year-old female, who was bringing in her cat from the cold weather when she began to have substernal pressure. For that reason, she came to the emergency room. She had been to the ER the day before for other issues and is frequent in the emergency room. She denied any radiation of pain. No shortness of breath. No nausea or vomiting. The pain lasted a few minutes and stopped. There is no diaphoresis. Dr. Alvarez was contacted because of other risk factors such as her morbid obesity, hypertension, medical noncompliance, and history of prior episode of congestive heart failure. PAST MEDICAL HISTORY: As mentioned above. She is morbidly obese. Has hypertension and hyperlipidemia. She has been a vxy-ehskpfb-xrmdfcgod diabetic in the past. She also has osteoarthritis. PAST SURGICAL HISTORY: Includes tubal ligation. PAST PSYCHIATRIC HISTORY: Significant for depression, anxiety. 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 SOCIAL HISTORY: She is never . Denies illicit drug use. Used to smoke, but no longer does. Does not drink alcoholic beverages. ALLERGIES: TO SULFA. MEDICATIONS ON ADMISSION: Include: 1. Hydralazine 50 mg b.i.d. 2. Rosuvastatin 20 mg daily. 3. Singulair 10 mg daily. 4. Metoprolol succinate 50 mg daily. 5. Losartan 100 mg daily. 6. Ibuprofen p.r.n. for aches and pains. 7. Lasix 20 mg daily. 8. Folic acid 1 mg daily. 9. Citalopram 40 mg daily. 10. Amlodipine I believe 5 mg daily. REVIEW OF SYSTEMS: CONSTITUTIONAL: Denies fever, chills, shortness of breath, malaise, or diarrhea. HEENT: Denies drainage in eyes, ears, nose, or throat. CHEST: Denies shortness of breath or cough. CARDIOVASCULAR: She is here for chest discomfort that resolved before coming to the emergency room. Denies palpitations. GI: Denies nausea, vomiting, or diarrhea. : Denies blood in urine or stool or dysuria. MUSCULOSKELETAL: Has diffuse aches and pains, especially in her knees and lower extremities. She is very deconditioned. SKIN: The patient picks at her skin constantly and has constant skin outbreaks, but no acute findings. NEUROLOGICAL: Significant for headaches, anxiety, but denies blurred vision or trouble with mentation. PHYSICAL EXAMINATION: At the time of admission, VITAL SIGNS: Temperature 98.6; pulse 92; respirations 20; O2 saturation 100% on room air; blood pressure 154/44 and this was rechecked later and it came down to 111/76. GENERAL: This is a morbidly obese, unkempt female, alert, oriented, cooperative. HEENT: Normocephalic, atraumatic. Pupils are equal, round, and reactive to light. Conjunctiva clear. TMs, nares clear. Pharynx with very poor dentition. NECK: Supple. Trachea midline. No mass. CHEST: Clear to auscultation. BREAST: Deferred. HEART: Regular rate and rhythm without murmur. ABDOMEN: Soft, nontender without hepatosplenomegaly. : Deferred. EXTREMITIES: With 2+ edema (chronic). Normal range of motion. SKIN: Excoriated due to self-inflicted nervous activity. No acute rashes or lesions. NEUROLOGIC: Cranial nerves are intact. Gait and cerebral function are nonfocal. Sensory exam is grossly intact. Mental status is at baseline. LABORATORY DATA: The lab work thus far shows WBC is 8, hemoglobin 9.5, hematocrit 27.1, platelets are 234. Sodium 137, potassium 3.5, chloride 100, CO2 of 26, BUN 19, creatinine 1.92. Liver functions unremarkable. Troponin I is unremarkable. COVID negative. Chest x-ray shows no consolidation or alveolar edema. ASSESSMENT: 1. Chest pain. 2. Anemia. 3. Anxiety disorder. 4. Hypertension. 5. General medical noncompliance. PLAN: 1. Stress test. 2. Hemoccult stools. 3. Serial evaluation and cardiology consultation if her stress test is positive. Job ID: [id number]
--- NOTE | 2020-11-26 13:49 | NM ---
Radionucleotide stress only myocardial perfusion scan with CT attenuation correction and SPECT imagin g Left ventricular wall motion evaluation and ejection fraction HISTORY: Chest pain. FINDINGS: Adenosine protocol. EKG response of T-wave inversion is noted. There is homogeneous uptake of radiotracer throughout the left ventricular myocardium with mild diaphragmatic attenuation. No focal perfusion defect. QGS analysis of gated SPECT images shows no focal wall motion abnormalities. Ejection fraction calcul ated at 73%. IMPRESSION : No evidence of ischemia. Normal LVEF.
[2020-11-27 04:38] LABS: #Eosinphils 0.1 thou/uL (0.0-0.7); #Lymphocytes 1.5 thou/uL (1.20-3.40); #Monocytes 0.4 thou/uL (0.11-0.59); #Neutrophils 3.1 thou/uL (1.40-6.50); %Basophils 0.6 % (0.0-1.0); %Eosinophils 1.4 % (0.0-10.0); %Lymphocytes 29.1 % (21.0-51.0); %Monocytes 8.2 % (0.0-10.0); %Neutrophils 60.6 % (42.0-75.0); Hemoglobin 8.5 g/dL (12.0-16.0); Mean Corpuscular Hemoglobin 28.4 pg (27.0-31.0); Mean Corpuscular Volume 83.5 fL (78.0-98.0); Mean Platelet Volume 10.1 fL (7.4-10.4); Platelet Count 180 thou/uL (130-400); RBC Distribution Width 12.7 % (11.5-14.5); Red Blood Cell (RBC) Count 2.99 mill/uL (4.20-5.40); White Blood Cell (WBC) Count 5.1 thou/uL (4.8-10.8)
[2020-11-27] MEDS ORDERED: Acetaminophen 500 MG TAB PO PRN (07:40)
[2020-11-27] MEDS: Citalopram 20 MG TAB PO SCH (10:06)
[2020-11-27] MEDS: guaiFENesin ER 600 MG TAB PO SCH ×2 (10:06→20:15)
[2020-11-27] MEDS: ALPRAZolam 0.5 MG TAB PO SCH ×3 (10:06→20:15)
[2020-11-27] MEDS: hydrALAZINE 25 MG TAB PO SCH ×3 (10:06→20:19)
[2020-11-27] MEDS: Amlodipine 10 MG TAB PO SCH (10:07)
[2020-11-27 11:07] LABS: Bacteria/HPF 4+ HPF (None Seen); Bilirubin Negative (Negative); Blood, Urine 2+ (Negative); Clarity Extra Turbid (Clear); Glucose, Urine (Dipstick) Normal (Negative); Ketone, Urine Trace mg/dL (Negative); Leukocyte 500 Leu/uL (Negative); Nitrite Negative (Negative); Protein, Urine (Dipstick) 100 mg/dL (Neg-Trace); Specific Gravity, Urine 1.011 (1.002-1.036); Urobilinogen 3 mg/dL (Less than 2); WBC/HPF Greater than 50 HPF (0-3)
[2020-11-27] MEDS ORDERED: Milk Of Magnesia 30 ML UDCUP PO SCH (15:15)
[2020-11-27] MEDS ORDERED: Fleet Enema 133 ML BOT FS PRN (17:58)
[2020-11-28] MEDS: hydrALAZINE 25 MG TAB PO SCH ×2 (09:15→16:25)
[2020-11-28] MEDS: ALPRAZolam 0.5 MG TAB PO SCH ×2 (09:16→16:25)
[2020-11-28] MEDS: Citalopram 20 MG TAB PO SCH (09:16)
[2020-11-28] MEDS: Amlodipine 10 MG TAB PO SCH (09:16)
[2020-11-28] MEDS: guaiFENesin ER 600 MG TAB PO SCH (09:16)
[2020-11-28 11:13] LABS: #Eosinphils 0.1 thou/uL (0.0-0.7); #Monocytes 0.3 thou/uL (0.11-0.59); #Neutrophils 3.5 thou/uL (1.40-6.50); %Basophils 0.9 % (0.0-1.0); %Eosinophils 2.2 % (0.0-10.0); %Lymphocytes 19.7 % (21.0-51.0); %Monocytes 6.1 % (0.0-10.0); %Neutrophils 71.2 % (42.0-75.0); Hemoglobin 9.6 g/dL (12.0-16.0); Mean Corpuscular HGB CONC 34.6 g/dL (32.0-36.0); Mean Corpuscular Hemoglobin 28.9 pg (27.0-31.0); Mean Corpuscular Volume 83.5 fL (78.0-98.0); Mean Platelet Volume 10.8 fL (7.4-10.4); Platelet Count 198 thou/uL (130-400); RBC Distribution Width 12.9 % (11.5-14.5); Red Blood Cell (RBC) Count 3.33 mill/uL (4.20-5.40); White Blood Cell (WBC) Count 4.9 thou/uL (4.8-10.8)
--- NOTE | 2020-11-28 11:19 | EKG ---
Test Reason : Blood Pressure : / mmHG Vent. Rate : 079 BPM Atrial Rate : 079 BPM P-R Int : 214 ms QRS Dur : 078 ms QT Int : 440 ms P-R-T Axes : 000 -03 -09 degrees QTc Int : 504 ms Sinus rhythm with 1st degree A-V block Prolonged QT Abnormal ECG Confirmed by RAKEL ARAGON ([id number]), editor continuity and script KADY CARRASCO ([id number]) on 11/28/2020 11:19:23 AM Referred By: Confirmed By:RAKEL ARAGON
[2020-11-28] MEDS ORDERED: Nitrofurantoin Monohyd/M-Cryst 100 MG CAP PO SCH ×2 (11:30→21:00)
[2020-11-28] MEDS ORDERED: Milk Of Magnesia 30 ML UDCUP PO SCH (11:30)
[2020-11-28 16:39] VITALS: BP 138/68; TEMP 97.9
--- NOTE | 2020-12-01 14:31 | DIS ---
DATE OF ADMISSION: 11/25/2020 DATE OF DISCHARGE: 11/28/2020 CHIEF COMPLAINT ON ADMISSION: Chest pain. History and Physical had previously been dictated, I will resume from there with hospital course. HOSPITAL COURSE: The patient was placed on telemetry bed for monitoring every heartbeat. Troponins were scheduled out and unremarkable. She was set up for a stress test, which was performed on the very next day. Stool hemoccults were also ordered. After the first 24 hours, there was no longer any chest pain. She complained of a headache. Hemoglobin dropped to 8.5 and hematocrit to 25. She admitted to being under a lot of stress and being very anxious. She has a history of anemia and it is significantly worse. She was able to quickly go to Medical once her stress test returned negative. Then finally on 11/28/2020, she had a bowel movement that returned Hemoccult negative and was finally able to be discharged home. DIAGNOSES AT THE TIME OF DISCHARGE: 1. Chest pain-anxiety induced. 2. Generalized anxiety, severe. 3. Anemia. 4. Urinary tract infection. DISCHARGE MEDICATIONS: She is to be discharged home on Macrobid to take twice a day. FOLLOWUP: She will follow up with Dr. Alvarez in 1 week for reassessment. CONDITION: She is discharged in stable condition. The time required to review the chart, examine the patient, financial health counselor the patient, reconcile all her medications, write prescriptions came to 30 minutes of face time and 10 additional minutes for saturator tender. Job ID: [id number]
== END 2020-11-28 17:59 | disposition home or self-care (01) ==
LOC: ERS 20:00 → ERHOLD 22:38 → 2NO 11-26 09:50 → SURG A 11-27 11:28
PROVIDERS: ADMIT Specialist; ATTEND Specialist
DX: R07.89 Other chest pain (principal); D64.9 Anemia, unspecified; F41.9 Anxiety disorder, unspecified; I11.0 Hypertensive heart disease with heart failure; I50.9 Heart failure, unspecified; E78.5 Hyperlipidemia, unspecified; E11.9 Type 2 diabetes mellitus without complications; M19.90 Unspecified osteoarthritis, unspecified site; F32.9 Major depressive disorder, single episode, unspecified; F70 Mild intellectual disabilities; E66.01 Morbid (severe) obesity due to excess calories; Z68.42 Body mass index [BMI] 45.0-49.9, adult; Z91.19 Patient's noncompliance with other medical treatment and regimen; Z79.899 Other long term (current) drug therapy; Z88.1 Allergy status to other antibiotic agents; Z88.2 Allergy status to sulfonamides; Z20.822 Contact with and (suspected) exposure to COVID-19
CPT/HCPCS: 71045; 78452; 80053; 81001; 84484 ×3; 85025 ×3; 87077; 87086; 87186; 93005; 93017; 99285; A9500; U0003; U0005; 36415; 87635; G0378; J0153

== ENCOUNTER 2021-01-30 23:58 | Emergency (ER) | payer MEDICARE, OTHER ==
[2021-01-31 00:44] LABS: #Basophils 0.1 thou/uL (0.0-0.2); #Eosinphils 0.1 thou/uL (0.0-0.7); #Lymphocytes 1.3 thou/uL (1.20-3.40); #Monocytes 0.3 thou/uL (0.11-0.59); #Neutrophils 3.1 thou/uL (1.40-6.50); %Basophils 1.2 % (0.0-1.0); %Eosinophils 2.9 % (0.0-10.0); %Lymphocytes 26.1 % (21.0-51.0); %Monocytes 5.9 % (0.0-10.0); %Neutrophils 63.9 % (42.0-75.0); Hemoglobin 9.2 g/dL (12.0-16.0); Mean Corpuscular HGB CONC 34.5 g/dL (32.0-36.0); Mean Corpuscular Hemoglobin 29.4 pg (27.0-31.0); Mean Corpuscular Volume 85.1 fL (78.0-98.0); Mean Platelet Volume 9.3 fL (7.4-10.4); Platelet Count 165 thou/uL (130-400); Red Blood Cell (RBC) Count 3.14 mill/uL (4.20-5.40); White Blood Cell (WBC) Count 4.9 thou/uL (4.8-10.8)
[2021-01-31 00:58] LABS: ALT (SGPT) 14 U/L (8-55); AST (SGOT) 16 U/L (5-34); Albumin 3.6 g/dL (3.5-5.0); Alkaline Phosphatase 69 U/L (40-110); Anion Gap 14 mmol/L (10-20); BUN (Urea Nitrogen) 21 mg/dL (9.8-20.1); Bilirubin, Total 0.3 mg/dL (0.2-1.2); Calc. Creatinine Clearance 0 mL/min (70-130); Carbon Dioxide 22 mmol/L (22-29); Chloride 108 mmol/L (98-107); Globulin 2.9 g/dL (2.4-3.5); Glucose 96 mg/dL (70-105); Protein, Total 6.5 g/dL (6.0-8.3); Sodium 140 mmol/L (136-145)
== END 2021-01-31 01:34 | disposition home or self-care (01) ==
LOC: ERS 23:58
DX: F43.0 Acute stress reaction (principal); R07.9 Chest pain, unspecified; E78.5 Hyperlipidemia, unspecified; I11.0 Hypertensive heart disease with heart failure; I50.9 Heart failure, unspecified; Z79.899 Other long term (current) drug therapy
CPT/HCPCS: 36415; 71045; 80053; 84484; 85025; 93005

== ENCOUNTER 2021-02-20 22:53 | Emergency (ER) | payer MEDICARE, OTHER ==
[2021-02-20] MEDS ORDERED: Ondansetron PF 4 MG/2 ML Vial ONE (23:34)
[2021-02-20] MEDS ORDERED: Aspirin Chewable 81 MG TAB ONE (23:34)
[2021-02-20 23:55] LABS: #Basophils 0.1 thou/uL (0.0-0.2); #Eosinphils 0.1 thou/uL (0.0-0.7); #Lymphocytes 1.3 thou/uL (1.20-3.40); #Monocytes 0.3 thou/uL (0.11-0.59); #Neutrophils 3.5 thou/uL (1.40-6.50); %Basophils 1.2 % (0.0-1.0); %Eosinophils 2.3 % (0.0-10.0); %Lymphocytes 24.4 % (21.0-51.0); %Monocytes 5.8 % (0.0-10.0); %Neutrophils 66.4 % (42.0-75.0); Hemoglobin 9.3 g/dL (12.0-16.0); Mean Corpuscular HGB CONC 34.6 g/dL (32.0-36.0); Mean Corpuscular Hemoglobin 29.4 pg (27.0-31.0); Mean Platelet Volume 9.5 fL (7.4-10.4); Platelet Count 182 thou/uL (130-400); RBC Distribution Width 12.5 % (11.5-14.5); Red Blood Cell (RBC) Count 3.17 mill/uL (4.20-5.40); White Blood Cell (WBC) Count 5.3 thou/uL (4.8-10.8)
[2021-02-21 00:30] LABS: ALT (SGPT) 12 U/L (8-55); AST (SGOT) 15 U/L (5-34); Albumin 3.9 g/dL (3.5-5.0); Alkaline Phosphatase 74 U/L (40-110); Anion Gap 14 mmol/L (10-20); BUN (Urea Nitrogen) 24 mg/dL (9.8-20.1); Bilirubin, Total 0.3 mg/dL (0.2-1.2); Calc. Creatinine Clearance 0 mL/min (70-130); Carbon Dioxide 23 mmol/L (22-29); Chloride 111 mmol/L (98-107); Globulin 2.7 g/dL (2.4-3.5); Glucose 110 mg/dL (70-105); Magnesium 2.1 mg/dL (1.6-2.6); Potassium 4.3 mmol/L (3.5-5.1); Protein, Total 6.6 g/dL (6.0-8.3); Sodium 144 mmol/L (136-145)
== END 2021-02-21 01:15 | disposition home or self-care (01) ==
LOC: ERS 22:53
DX: R07.89 Other chest pain (principal); R00.2 Palpitations; I11.0 Hypertensive heart disease with heart failure; I50.9 Heart failure, unspecified; E78.5 Hyperlipidemia, unspecified; Z79.899 Other long term (current) drug therapy
CPT/HCPCS: 36415; 71045; 80053; 83735; 83880; 84484; 85025; 93005; 96374; J2405

== ENCOUNTER 2021-03-23 17:45 | Inpatient (IN) | payer MEDICARE, MEDICAID ==
[2021-03-23 18:35] LABS: #Lymphocytes 1.1 thou/uL (1.20-3.40); #Monocytes 0.4 thou/uL (0.11-0.59); #Neutrophils 7.1 thou/uL (1.40-6.50); %Basophils 0.5 % (0.0-1.0); %Eosinophils 0.5 % (0.0-10.0); %Lymphocytes 12.7 % (21.0-51.0); %Monocytes 4.8 % (0.0-10.0); %Neutrophils 81.5 % (42.0-75.0); Mean Corpuscular HGB CONC 32.6 g/dL (32.0-36.0); Mean Corpuscular Hemoglobin 27.9 pg (27.0-31.0); Mean Corpuscular Volume 85.7 fL (78.0-98.0); Platelet Count 197 thou/uL (130-400); RBC Distribution Width 12.3 % (11.5-14.5); Red Blood Cell (RBC) Count 3.56 mill/uL (4.20-5.40); White Blood Cell (WBC) Count 8.7 thou/uL (4.8-10.8)
[2021-03-23 18:55] LABS: ALT (SGPT) 25 U/L (8-55); AST (SGOT) 24 U/L (5-34); Albumin 4.3 g/dL (3.5-5.0); Alkaline Phosphatase 76 U/L (40-110); Anion Gap 17 mmol/L (10-20); BUN (Urea Nitrogen) 47 mg/dL (9.8-20.1); Bilirubin, Total 0.5 mg/dL (0.2-1.2); CK (CPK) 346 U/L (29-168); Calc. Creatinine Clearance 0 mL/min (70-130); Calcium 9.9 mg/dL (7.8-10.44); Carbon Dioxide 19 mmol/L (22-29); Chloride 117 mmol/L (98-107); Globulin 3.5 g/dL (2.4-3.5); Glucose 128 mg/dL (70-105); Magnesium 2.3 mg/dL (1.6-2.6); Potassium 4.1 mmol/L (3.5-5.1); Protein, Total 7.8 g/dL (6.0-8.3); Sodium 149 mmol/L (136-145)
[2021-03-23 19:40] LABS: Bacteria/HPF 4+ HPF (None Seen); Bilirubin Negative (Negative); Blood, Urine 2+ (Negative); Clarity Clear (Clear); Glucose, Urine (Dipstick) Normal (Negative); Ketone, Urine 10 mg/dL (Negative); Leukocyte 75 Leu/uL (Negative); Nitrite 1+ (Negative); Protein, Urine (Dipstick) 10 mg/dL (Neg-Trace); RBC/HPF 0-3 HPF (0-3); Specific Gravity, Urine 1.023 (1.002-1.036); Squamous Epithelial None Seen HPF (0-3); Urobilinogen Normal mg/dL (Less than 2)
[2021-03-23] MEDS ORDERED: cefTRIAXone\\ROCEPHIN 2 GM VIAL ONE (20:53)
[2021-03-23] MEDS ORDERED: Vancomycin 1 GM/200 ML BAG ONE (21:31)
[2021-03-23 22:56] VITALS: BMI 45.7
[2021-03-23] MEDS ORDERED: Sodium Chloride 0.9% 1,000 ML IV SCH (23:00)
[2021-03-24 05:29] LABS: SARS-CoV-2 PCR by NAA Not Detected (NotDetected)
[2021-03-24] MEDS: Ondansetron PF 4 MG/2 ML Vial IVP PRN (08:00)
[2021-03-24] MEDS: Citalopram 20 MG TAB PO SCH (08:08)
[2021-03-24] MEDS: ALPRAZolam 0.5 MG TAB PO SCH ×3 (08:09→19:59)
[2021-03-24] MEDS: Amlodipine 10 MG TAB PO SCH (08:09)
[2021-03-24] MEDS: Sodium Chloride 0.9% 1,000 ML IV SCH ×2 (08:09→19:26)
[2021-03-24] MEDS: hydrALAZINE 25 MG TAB PO SCH ×2 (08:09→19:59)
[2021-03-24 08:35] LABS: #Eosinphils 0.1 thou/uL (0.0-0.7); #Lymphocytes 1.1 thou/uL (1.20-3.40); #Monocytes 0.4 thou/uL (0.11-0.59); #Neutrophils 5.8 thou/uL (1.40-6.50); %Basophils 0.6 % (0.0-1.0); %Eosinophils 0.7 % (0.0-10.0); %Lymphocytes 14.9 % (21.0-51.0); %Monocytes 4.9 % (0.0-10.0); %Neutrophils 78.9 % (42.0-75.0); Hemoglobin 9.2 g/dL (12.0-16.0); Mean Corpuscular HGB CONC 32.8 g/dL (32.0-36.0); Mean Corpuscular Hemoglobin 28.1 pg (27.0-31.0); Mean Corpuscular Volume 85.7 fL (78.0-98.0); Mean Platelet Volume 9.8 fL (7.4-10.4); Platelet Count 173 thou/uL (130-400); RBC Distribution Width 12.3 % (11.5-14.5); Red Blood Cell (RBC) Count 3.28 mill/uL (4.20-5.40); White Blood Cell (WBC) Count 7.4 thou/uL (4.8-10.8)
[2021-03-24 08:51] LABS: Anion Gap 14 mmol/L (10-20); BUN (Urea Nitrogen) 44 mg/dL (9.8-20.1); Calc. Creatinine Clearance 66 mL/min (70-130); Calcium 9.1 mg/dL (7.8-10.44); Carbon Dioxide 19 mmol/L (22-29); Chloride 122 mmol/L (98-107); Glucose 103 mg/dL (70-105); Potassium 3.9 mmol/L (3.5-5.1); Sodium 151 mmol/L (136-145)
[2021-03-24] MEDS: Rosuvastatin 20 MG TAB PO SCH (19:59)
[2021-03-24] MEDS ORDERED: cefTRIAXone\\ROCEPHIN 1 GM in Sodium Chloride 0.9% 100 ML IVPB SCH (21:00)
[2021-03-24] MEDS: Acetaminophen 325 MG TAB PO PRN (22:36)
[2021-03-25] MEDS: Sodium Chloride 0.9% 1,000 ML IV SCH ×3 (03:48→20:23)
[2021-03-25 06:02] LABS: Hemoglobin A1c 4.8 % (4.0-6.0)
[2021-03-25 06:03] LABS: #Basophils 0.1 thou/uL (0.0-0.2); #Eosinphils 0.1 thou/uL (0.0-0.7); #Lymphocytes 1.1 thou/uL (1.20-3.40); #Monocytes 0.3 thou/uL (0.11-0.59); #Neutrophils 3.9 thou/uL (1.40-6.50); %Basophils 1.2 % (0.0-1.0); %Eosinophils 2.4 % (0.0-10.0); %Lymphocytes 19.5 % (21.0-51.0); %Monocytes 4.7 % (0.0-10.0); %Neutrophils 72.1 % (42.0-75.0); Hemoglobin 8.7 g/dL (12.0-16.0); Mean Corpuscular HGB CONC 32.6 g/dL (32.0-36.0); Mean Corpuscular Hemoglobin 28.7 pg (27.0-31.0); Platelet Count 154 thou/uL (130-400); RBC Distribution Width 12.3 % (11.5-14.5); Red Blood Cell (RBC) Count 3.05 mill/uL (4.20-5.40); White Blood Cell (WBC) Count 5.4 thou/uL (4.8-10.8)
[2021-03-25 06:21] LABS: Anion Gap 13 mmol/L (10-20); BUN (Urea Nitrogen) 38 mg/dL (9.8-20.1); Bilirubin, Total 0.5 mg/dL (0.2-1.2); Calc. Creatinine Clearance 74 mL/min (70-130); Calcium 8.6 mg/dL (7.8-10.44); Carbon Dioxide 18 mmol/L (22-29); Cardiac Risk 4.7 (Less than 4.5); Chloride 119 mmol/L (98-107); Cholesterol 132 mg/dl (< 200 Desired); Glucose 82 mg/dL (70-105); HDL Cholesterol 28 mg/dL (>60 Neg Risk); Iron 61 ug/dL (50-170); LDL Cholesterol, Calculated 81 mg/dL; Potassium 3.8 mmol/L (3.5-5.1); Sodium 146 mmol/L (136-145); Triglycerides 116 mg/dL (Less than 150)
[2021-03-25] MEDS: Amlodipine 10 MG TAB PO SCH (08:17)
[2021-03-25] MEDS: Cephalexin 250 MG CAP PO SCH ×4 (08:17→20:21)
[2021-03-25] MEDS: hydrALAZINE 25 MG TAB PO SCH ×2 (08:17→20:19)
[2021-03-25] MEDS: ALPRAZolam 0.5 MG TAB PO SCH ×3 (08:17→20:22)
[2021-03-25] MEDS: Citalopram 20 MG TAB PO SCH (08:17)
[2021-03-25] MEDS: Acetaminophen 325 MG TAB PO PRN ×2 (13:59→20:10)
[2021-03-25] MEDS: Rosuvastatin 20 MG TAB PO SCH (20:21)
[2021-03-26] MEDS: Ondansetron PF 4 MG/2 ML Vial IVP PRN (01:55)
[2021-03-26] MEDS: Acetaminophen 325 MG TAB PO PRN ×2 (03:29→20:58)
[2021-03-26 06:03] LABS: #Eosinphils 0.1 thou/uL (0.0-0.7); #Lymphocytes 0.7 thou/uL (1.20-3.40); #Monocytes 0.3 thou/uL (0.11-0.59); #Neutrophils 3.8 thou/uL (1.40-6.50); %Basophils 0.6 % (0.0-1.0); %Eosinophils 1.9 % (0.0-10.0); %Lymphocytes 14.7 % (21.0-51.0); %Monocytes 6.8 % (0.0-10.0); Hemoglobin 8.6 g/dL (12.0-16.0); Mean Corpuscular Hemoglobin 28.3 pg (27.0-31.0); Mean Corpuscular Volume 85.7 fL (78.0-98.0); Mean Platelet Volume 10.8 fL (7.4-10.4); Platelet Count 133 thou/uL (130-400); Red Blood Cell (RBC) Count 3.03 mill/uL (4.20-5.40)
[2021-03-26 06:18] LABS: Anion Gap 11 mmol/L (10-20); BUN (Urea Nitrogen) 32 mg/dL (9.8-20.1); Calc. Creatinine Clearance 84 mL/min (70-130); Calcium 8.6 mg/dL (7.8-10.44); Carbon Dioxide 19 mmol/L (22-29); Chloride 117 mmol/L (98-107); Glucose 82 mg/dL (70-105); Potassium 3.8 mmol/L (3.5-5.1); Sodium 143 mmol/L (136-145)
[2021-03-26] MEDS: Amlodipine 10 MG TAB PO SCH (08:20)
[2021-03-26] MEDS: ALPRAZolam 0.5 MG TAB PO SCH ×3 (08:20→20:58)
[2021-03-26] MEDS: hydrALAZINE 25 MG TAB PO SCH ×2 (08:20→20:58)
[2021-03-26] MEDS: Citalopram 20 MG TAB PO SCH (08:20)
[2021-03-26] MEDS: Nitrofurantoin Monohyd/M-Cryst 100 MG CAP PO SCH ×2 (08:21→20:58)
[2021-03-26] MEDS: Sodium Chloride 0.9% 1,000 ML IV SCH ×2 (08:22→20:59)
[2021-03-26] MEDS: Rosuvastatin 20 MG TAB PO SCH (20:58)
[2021-03-27] MEDS: Acetaminophen 325 MG TAB PO PRN ×2 (04:08→12:28)
[2021-03-27] MEDS: Sodium Chloride 0.9% 1,000 ML IV SCH ×2 (07:45→15:42)
[2021-03-27] MEDS: hydrALAZINE 25 MG TAB PO SCH ×2 (08:10→21:34)
[2021-03-27] MEDS: ALPRAZolam 0.5 MG TAB PO SCH ×3 (08:10→21:34)
[2021-03-27] MEDS: Nitrofurantoin Monohyd/M-Cryst 100 MG CAP PO SCH ×2 (08:10→21:34)
[2021-03-27] MEDS: Amlodipine 10 MG TAB PO SCH (08:11)
[2021-03-27] MEDS: Citalopram 20 MG TAB PO SCH (08:11)
[2021-03-27 13:07] LABS: Hemoglobin 8.6 g/dL (12.0-16.0); Mean Corpuscular HGB CONC 34.1 g/dL (32.0-36.0); Mean Corpuscular Volume 85.2 fL (78.0-98.0); Mean Platelet Volume 10.1 fL (7.4-10.4); Platelet Count 145 thou/uL (130-400); Red Blood Cell (RBC) Count 2.97 mill/uL (4.20-5.40); White Blood Cell (WBC) Count 10.6 thou/uL (4.8-10.8)
[2021-03-27 13:20] LABS: Band 2 % (5-11); Eosinophils 3 % (0-10); Lymphocytes 2 % (21-51); MDiff Complete? YES; Monocytes 1 % (0-10); Neutrophil 90 % (42-75); Platelet Morphology Comment Appears Adequate; Polychromasia SLIGHT = 2-3 cells (100X) (0-2/hpf)
[2021-03-27 13:25] LABS: Anion Gap 13 mmol/L (10-20); BUN (Urea Nitrogen) 21 mg/dL (9.8-20.1); Calc. Creatinine Clearance 84 mL/min (70-130); Calcium 8.5 mg/dL (7.8-10.44); Carbon Dioxide 17 mmol/L (22-29); Chloride 118 mmol/L (98-107); Glucose 94 mg/dL (70-105); Potassium 3.7 mmol/L (3.5-5.1); Sodium 144 mmol/L (136-145)
[2021-03-27 17:08] LABS: SARS-CoV-2 PCR by NAA Not Detected (NotDetected)
[2021-03-27] MEDS: Acetaminophen 325 MG TAB PO SCH ×2 (18:09→23:58)
[2021-03-27 20:44] LABS: Bilirubin Negative (Negative); Blood, Urine Trace (Negative); Clarity Clear (Clear); Glucose, Urine (Dipstick) Normal (Negative); Ketone, Urine Trace mg/dL (Negative); Leukocyte 25 Leu/uL (Negative); Nitrite Negative (Negative); Protein, Urine (Dipstick) Negative (Neg-Trace); Specific Gravity, Urine 1.015 (1.002-1.036); Squamous Epithelial 0-3 HPF (0-3); Urobilinogen Normal mg/dL (Less than 2)
[2021-03-27 20:55] LABS: Yeast-Budding Rare HPF (None Seen)
[2021-03-27 20:57] LABS: Bacteria/HPF Rare-Few HPF (None Seen)
[2021-03-27 20:59] LABS: Urine Culture Reflex Yes Yes
[2021-03-27] MEDS: Rosuvastatin 20 MG TAB PO SCH (21:33)
[2021-03-28] MEDS: Acetaminophen 325 MG TAB PO SCH ×3 (06:11→18:21)
[2021-03-28] MEDS: Sodium Chloride 0.9% 1,000 ML IV SCH ×3 (06:12→20:47)
[2021-03-28] MEDS: Nitrofurantoin Monohyd/M-Cryst 100 MG CAP PO SCH ×2 (07:58→20:48)
[2021-03-28] MEDS: hydrALAZINE 25 MG TAB PO SCH ×2 (07:58→20:48)
[2021-03-28] MEDS: Citalopram 20 MG TAB PO SCH (07:58)
[2021-03-28] MEDS: Amlodipine 10 MG TAB PO SCH (07:58)
[2021-03-28] MEDS: ALPRAZolam 0.5 MG TAB PO SCH ×3 (07:59→20:48)
[2021-03-28] MEDS: Benzonatate 100 MG CAP PO SCH ×3 (11:52→21:00)
[2021-03-28] MEDS: Enoxaparin Sodium 40 MG/0.4 ML SYRINGE SC SCH (11:54)
[2021-03-28] MEDS ORDERED: Iopamidol-370 76% 500 ML 1 ML ONE (12:03)
[2021-03-28] MEDS: Rosuvastatin 20 MG TAB PO SCH (20:48)
[2021-03-29] MEDS: Acetaminophen 325 MG TAB PO SCH ×4 (00:24→18:07)
[2021-03-29] MEDS: Ondansetron PF 4 MG/2 ML Vial IVP PRN (04:49)
[2021-03-29] MEDS: Benzonatate 100 MG CAP PO SCH ×4 (06:11→21:18)
[2021-03-29] MEDS: Sodium Chloride 0.9% 1,000 ML IV SCH ×2 (06:28→17:03)
[2021-03-29 07:24] LABS: Anion Gap 13 mmol/L (10-20); BUN (Urea Nitrogen) 22 mg/dL (9.8-20.1); Calc. Creatinine Clearance 85 mL/min (70-130); Calcium 8.1 mg/dL (7.8-10.44); Carbon Dioxide 15 mmol/L (22-29); Chloride 115 mmol/L (98-107); Glucose 82 mg/dL (70-105); Potassium 3.5 mmol/L (3.5-5.1); Sodium 139 mmol/L (136-145)
[2021-03-29 07:44] LABS: #Eosinphils 0.3 thou/uL (0.0-0.7); #Lymphocytes 0.4 thou/uL (1.20-3.40); #Monocytes 0.4 thou/uL (0.11-0.59); #Neutrophils 7.6 thou/uL (1.40-6.50); %Basophils 0.2 % (0.0-1.0); %Eosinophils 3.4 % (0.0-10.0); %Monocytes 4.3 % (0.0-10.0); %Neutrophils 87.2 % (42.0-75.0); Hemoglobin 8.1 g/dL (12.0-16.0); Mean Corpuscular HGB CONC 34.2 g/dL (32.0-36.0); Mean Corpuscular Hemoglobin 29.5 pg (27.0-31.0); Mean Corpuscular Volume 86.1 fL (78.0-98.0); Mean Platelet Volume 10.3 fL (7.4-10.4); Platelet Count 145 thou/uL (130-400); RBC Distribution Width 12.4 % (11.5-14.5); Red Blood Cell (RBC) Count 2.74 mill/uL (4.20-5.40); White Blood Cell (WBC) Count 8.7 thou/uL (4.8-10.8)
[2021-03-29] MEDS: Citalopram 20 MG TAB PO SCH (08:41)
[2021-03-29] MEDS: ALPRAZolam 0.5 MG TAB PO SCH ×3 (08:42→20:14)
[2021-03-29] MEDS: Amlodipine 10 MG TAB PO SCH (08:43)
[2021-03-29] MEDS: hydrALAZINE 25 MG TAB PO SCH ×2 (08:43→20:14)
[2021-03-29] MEDS: Nitrofurantoin Monohyd/M-Cryst 100 MG CAP PO SCH ×2 (08:43→20:15)
[2021-03-29] MEDS: Enoxaparin Sodium 40 MG/0.4 ML SYRINGE SC SCH (08:44)
[2021-03-29] MEDS: Rosuvastatin 20 MG TAB PO SCH (20:14)
[2021-03-30] MEDS: Acetaminophen 325 MG TAB PO SCH ×4 (01:20→18:45)
[2021-03-30] MEDS: Sodium Chloride 0.9% 1,000 ML IV SCH ×3 (04:00→23:20)
[2021-03-30] MEDS: Benzonatate 100 MG CAP PO SCH ×4 (04:57→21:20)
[2021-03-30 06:57] LABS: #Eosinphils 0.5 thou/uL (0.0-0.7); #Lymphocytes 0.5 thou/uL (1.20-3.40); #Monocytes 0.5 thou/uL (0.11-0.59); #Neutrophils 7.1 thou/uL (1.40-6.50); %Basophils 0.1 % (0.0-1.0); %Eosinophils 5.9 % (0.0-10.0); %Lymphocytes 5.9 % (21.0-51.0); %Monocytes 5.3 % (0.0-10.0); %Neutrophils 82.8 % (42.0-75.0); Mean Corpuscular HGB CONC 33.5 g/dL (32.0-36.0); Mean Corpuscular Volume 86.5 fL (78.0-98.0); Platelet Count 177 thou/uL (130-400); RBC Distribution Width 12.6 % (11.5-14.5); Red Blood Cell (RBC) Count 2.76 mill/uL (4.20-5.40); White Blood Cell (WBC) Count 8.6 thou/uL (4.8-10.8)
[2021-03-30 07:15] LABS: Anion Gap 14 mmol/L (10-20); BUN (Urea Nitrogen) 29 mg/dL (9.8-20.1); Calc. Creatinine Clearance 63 mL/min (70-130); Calcium 8.4 mg/dL (7.8-10.44); Carbon Dioxide 17 mmol/L (22-29); Chloride 115 mmol/L (98-107); Glucose 99 mg/dL (70-105); Iron 22 ug/dL (50-170); Iron Binding Capacity, Total 144 mcg/dL (265-497); Potassium 3.5 mmol/L (3.5-5.1); Sodium 142 mmol/L (136-145)
[2021-03-30] MEDS: Nitrofurantoin Monohyd/M-Cryst 100 MG CAP PO SCH ×2 (08:51→21:20)
[2021-03-30] MEDS: ALPRAZolam 0.5 MG TAB PO SCH ×3 (08:51→21:20)
[2021-03-30] MEDS: Citalopram 20 MG TAB PO SCH (08:51)
[2021-03-30] MEDS: hydrALAZINE 25 MG TAB PO SCH ×2 (08:52→21:20)
[2021-03-30] MEDS: Enoxaparin Sodium 40 MG/0.4 ML SYRINGE SC SCH (08:52)
[2021-03-30] MEDS: Amlodipine 10 MG TAB PO SCH (08:52)
[2021-03-30] MEDS ORDERED: GoLYTELY 4,000 ml Bottle PO SCH (18:00)
[2021-03-30] MEDS ORDERED: Cyanocobalamin 1000 MCG/ML VIAL IM SCH (18:00)
[2021-03-30] MEDS: Rosuvastatin 20 MG TAB PO SCH (21:20)
[2021-03-31] MEDS: Acetaminophen 325 MG TAB PO SCH ×4 (00:21→17:08)
[2021-03-31] MEDS: Benzonatate 100 MG CAP PO SCH ×4 (03:48→21:10)
[2021-03-31 08:23] LABS: Hemoglobin 7.9 g/dL (12.0-16.0); Mean Corpuscular HGB CONC 33.3 g/dL (32.0-36.0); Mean Corpuscular Hemoglobin 28.7 pg (27.0-31.0); Mean Corpuscular Volume 85.9 fL (78.0-98.0); Mean Platelet Volume 9.9 fL (7.4-10.4); Platelet Count 181 thou/uL (130-400); RBC Distribution Width 12.6 % (11.5-14.5); Red Blood Cell (RBC) Count 2.76 mill/uL (4.20-5.40); White Blood Cell (WBC) Count 8.4 thou/uL (4.8-10.8)
[2021-03-31 08:46] LABS: Band 8 % (5-11); Eosinophils 11 % (0-10); Lymphocytes 6 % (21-51); MDiff Complete? YES; Monocytes 9 % (0-10); Neutrophil 66 % (42-75); Platelet Morphology Comment Appears Adequate; Polychromasia SLIGHT = 2-3 cells (100X) (0-2/hpf)
[2021-03-31] MEDS: hydrALAZINE 25 MG TAB PO SCH ×2 (08:57→21:13)
[2021-03-31] MEDS: Nitrofurantoin Monohyd/M-Cryst 100 MG CAP PO SCH ×2 (08:57→21:10)
[2021-03-31] MEDS: Citalopram 20 MG TAB PO SCH (08:57)
[2021-03-31] MEDS: ALPRAZolam 0.5 MG TAB PO SCH ×3 (08:58→21:10)
[2021-03-31] MEDS: Amlodipine 10 MG TAB PO SCH (08:58)
[2021-03-31] MEDS: Folic Acid 1 MG TAB PO SCH (08:59)
[2021-03-31] MEDS: Cyanocobalamin (Vitamin B-12) 1,000 MCG TAB PO SCH ×2 (08:59→10:34)
[2021-03-31] MEDS: Enoxaparin Sodium 40 MG/0.4 ML SYRINGE SC SCH (08:59)
[2021-03-31 09:42] LABS: Chloride 117 mmol/L (98-107); Potassium 3.7 mmol/L (3.5-5.1); Sodium 142 mmol/L (136-145)
[2021-03-31 09:43] LABS: Calcium 8.4 mg/dL (7.8-10.44); Glucose 86 mg/dL (70-105)
[2021-03-31 09:45] LABS: Anion Gap 14 mmol/L (10-20); Carbon Dioxide 15 mmol/L (22-29)
[2021-03-31 09:47] LABS: BUN (Urea Nitrogen) 35 mg/dL (9.8-20.1); Calc. Creatinine Clearance 55 mL/min (70-130)
[2021-03-31] MEDS: Ferrous Sulfate 325 MG TAB PO SCH (17:09)
[2021-03-31] MEDS: Sodium Chloride 0.9% 1,000 ML IV SCH ×2 (19:39→21:05)
[2021-03-31] MEDS: Rosuvastatin 20 MG TAB PO SCH (21:10)
[2021-04-01] MEDS: hydrALAZINE 25 MG TAB PO SCH ×2 (00:08→09:10)
[2021-04-01] MEDS: Acetaminophen 325 MG TAB PO SCH ×3 (00:08→11:19)
[2021-04-01] MEDS: Sodium Chloride 0.9% 1,000 ML IV SCH (04:41)
[2021-04-01] MEDS: Benzonatate 100 MG CAP PO SCH ×2 (05:16→09:13)
[2021-04-01 08:02] LABS: #Eosinphils 0.6 thou/uL (0.0-0.7); #Lymphocytes 0.9 thou/uL (1.20-3.40); #Monocytes 0.5 thou/uL (0.11-0.59); #Neutrophils 5.4 thou/uL (1.40-6.50); %Basophils 0.7 % (0.0-1.0); %Eosinophils 8.6 % (0.0-10.0); %Lymphocytes 12.2 % (21.0-51.0); %Monocytes 6.6 % (0.0-10.0); %Neutrophils 71.9 % (42.0-75.0); Hemoglobin 8.1 g/dL (12.0-16.0); Mean Corpuscular HGB CONC 33.7 g/dL (32.0-36.0); Mean Corpuscular Hemoglobin 28.9 pg (27.0-31.0); Mean Corpuscular Volume 85.9 fL (78.0-98.0); Mean Platelet Volume 9.8 fL (7.4-10.4); Platelet Count 220 thou/uL (130-400); RBC Distribution Width 12.6 % (11.5-14.5); Red Blood Cell (RBC) Count 2.79 mill/uL (4.20-5.40); White Blood Cell (WBC) Count 7.5 thou/uL (4.8-10.8)
[2021-04-01 08:15] LABS: Anion Gap 13 mmol/L (10-20); BUN (Urea Nitrogen) 37 mg/dL (9.8-20.1); Calc. Creatinine Clearance 52 mL/min (70-130); Calcium 8.3 mg/dL (7.8-10.44); Carbon Dioxide 16 mmol/L (22-29); Chloride 115 mmol/L (98-107); Glucose 81 mg/dL (70-105); Potassium 3.4 mmol/L (3.5-5.1); Sodium 141 mmol/L (136-145)
[2021-04-01] MEDS: ALPRAZolam 0.5 MG TAB PO SCH ×2 (09:10→16:46)
[2021-04-01] MEDS: Ferrous Sulfate 325 MG TAB PO SCH (09:10)
[2021-04-01] MEDS: Citalopram 20 MG TAB PO SCH (09:10)
[2021-04-01] MEDS: Amlodipine 10 MG TAB PO SCH (09:10)
[2021-04-01] MEDS: Nitrofurantoin Monohyd/M-Cryst 100 MG CAP PO SCH (09:10)
[2021-04-01] MEDS: Cyanocobalamin (Vitamin B-12) 1,000 MCG TAB PO SCH ×2 (09:11)
[2021-04-01] MEDS: Folic Acid 1 MG TAB PO SCH (09:11)
[2021-04-01] MEDS: Enoxaparin Sodium 40 MG/0.4 ML SYRINGE SC SCH (09:12)
[2021-04-01 11:18] VITALS: BP 108/69; TEMP 98.4
== END 2021-04-01 15:16 | DRG 690 ==
LOC: ERS 17:45 → T4-B 21:16
PROVIDERS: ADMIT Specialist; ATTEND Specialist
DX: N39.0 Urinary tract infection, site not specified (principal); N17.9 Acute kidney failure, unspecified; Z68.42 Body mass index [BMI] 45.0-49.9, adult; K92.1 Melena; E86.0 Dehydration; Z91.14 Patient's other noncompliance with medication regimen; E78.5 Hyperlipidemia, unspecified; E11.9 Type 2 diabetes mellitus without complications; F32.9 Major depressive disorder, single episode, unspecified; F41.9 Anxiety disorder, unspecified; Z98.51 Tubal ligation status; Z88.2 Allergy status to sulfonamides; D63.8 Anemia in other chronic diseases classified elsewhere; D51.9 Vitamin B12 deficiency anemia, unspecified; F70 Mild intellectual disabilities; I12.9 Hypertensive chronic kidney disease with stage 1 through stage 4 chronic kidney disease, or unspecified chronic kidney disease; N18.30 Chronic kidney disease, stage 3 unspecified; J40 Bronchitis, not specified as acute or chronic; Z20.822 Contact with and (suspected) exposure to COVID-19; E66.01 Morbid (severe) obesity due to excess calories; M16.12 Unilateral primary osteoarthritis, left hip; B96.20 Unspecified Escherichia coli [E. coli] as the cause of diseases classified elsewhere
CPT/HCPCS: 36415; 70450; 71045; 71046; 71275; 80048; 80053; 80061; 81001; 81003; 81015; 82140; 82247; 82274; 82550; 82607; 82728; 83036; 83540; 83550; 83605; 83735; 83880; 84443; 84484; 85025; 85379; 87040; 87077; 87086; 87186; 93005; 96365; 96367; J0696; J1650; J2405; J3370; J3420; J3490; Q9967; U0003; U0005